=== PATIENT | female | born 1990 | race Caucasian/White ===

== ENCOUNTER 2018-11-07 12:59 | Emergency (ER) | payer MEDICAID, SELFPAY ==
[2018-11-07 13:03] VITALS: BP 124/67; PULSE 105; RESP 16; TEMP 37; O2SAT 100
--- NOTE | 2018-11-07 13:10 | W.ED.GENAD ---
Discharge Plan Disposition Patient Disposition: HOME Condition: Good Discharge Details Chief Complaint: RespSymp Clinical Impression: URI (upper respiratory infection), Sinus congestion, Bronchitis Primary Care Provider: Kailee Quiroz ED Provider: Jhon Bell Home Meds and New Rx's Prescriptions: New albuterol sulfate 90 mcg/actuation HFA aerosol inhaler 1 puff IH Q6H PRN (Reason: bronchospasm) Qty: 8.5 RF: 0 No Action citalopram [Celexa] 20 MG tablet 20 mg PO DAILY Qty: 30 RF: 0 acetaminophen [Tylenol] 325 MG tablet 650 mg PO Q4H PRN PRNRF: 0 ibuprofen 600 MG tablet 600 mg PO Q6H PRN PRNRF: 0 Discharge Instructions Instructions: Upper Respiratory Infection (ED), Acute Bronchitis (ED) Additional Instructions: Please take your inhaler every 4-6 hours for the next 2 days. Please use the nasal sinus rinse as we discussed. Please take 10 mg loratadine every day for the improvement of your symptoms. please stop smoking. If you notice any worsening of your symptoms, or any new symptoms such as vomiting, diarrhea, fever, chills, shortness of breath, chest pain, numbness, weakness, or fainting , please return immediately to the emergency department for reevaluation. Please follow up with your primary care provider as soon as possible for reassessment and reevaluation. As always, it was a pleasure participating in your medical care today. Stand Alone Forms: Work Release Referrals: Kailee Quiroz [Primary Care Provider] - Medical Decision Making This is a pleasant 28-year-old female who presents with 4 days of upper respiratory symptoms. She has runny nose, congestion, mild sinus tenderness and pressure, with a cough with productive yellow sputum. She does smoke. Exam demonstrates no crackles, rhonchi, or wheezes. She is not hypoxic or tachypneic. No clinical indication for severe pneumonia. Signs and symptoms do appear consistent with sinus congestion and a mild upper respiratory viral infection, causing mild bronchitis. 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 With no clinical signs of pneumonia, and her sinus symptoms only being 4 days I do not think that there is an indication for antibiotics at this time, especially with her afebrile status, otherwise very reassuring vital signs and unremarkable lung sounds. With no clinical signs or symptoms clinically consistent of PE, ACS, severe pneumonia I do feel that she can be safely discharged home with close follow-up. Diagnosis mild sinusitis, viral URI, mild bronchitis. Will recommend that she utilize her inhaler every 4 hours for the next 24-48 hours. Perform sinus rinses on a regular basis, and take 10 mg of loratadine daily for improvement of her mild sinusitis. I had a long discussion with her regarding the importance of smoking cessation. We discussed red flags which return. I have extensively reviewed the treatment plan and discharge instructions with the patient and their family. I have addressed all patient concerns at this time. The patient and family was made aware of what symptoms to monitor for that would warrant a return to the emergency department. Discussed the plan with the patient and family, they demonstrate verbal understanding and agreement with our assessment and plan at this time. HPI General Date/Time Provider Initiated Documentation: 11/07/18 13:01. HPI Narrative: This is a 28-year-old female with a past medical history of regular tobacco abuse, who presents today for evaluation of upper respiratory infection-like symptoms. Patient states that for the last 4 days she has had a mild cough, with some mild productive yellow sputum. She is used her inhaler once or twice with some improvement. She denies any fever but does admit to malaise, joint achiness, and generalized feeling of unwellness. She denies any severe headache or neck pain. She denies any hemoptysis, current vomiting, or current diarrhea. She has no history of cardiac disease, blood clots, or other complaints. She does admit to a notable sinus pressure and congestion, and runny nose with this congestion. She denies any other modifying factors. 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 Related Data Home Medications Medication Instructions Recorded Confirmed citalopram [Celexa] 20 mg PO DAILY #30 tab-cap 10/13/17 11/07/18 acetaminophen [Tylenol] 650 mg PO Q4H PRN PRN tab 10/25/17 11/07/18 ibuprofen 600 mg PO Q6H PRN PRN tab 10/25/17 11/07/18 albuterol sulfate 1 puff IH Q6H PRN #8.5 gm 11/07/18 Previous Rx's Medication Instructions Recorded citalopram [Celexa] 20 mg PO DAILY #30 tab-cap 10/13/17 acetaminophen [Tylenol] 650 mg PO Q4H PRN PRN tab 10/25/17 ibuprofen 600 mg PO Q6H PRN PRN tab 10/25/17 albuterol sulfate 1 puff IH Q6H PRN #8.5 gm 11/07/18 Allergies Allergy/AdvReac Type Severity Reaction Status Date / Time silver [Silver] Allergy Intermediate rash Unverified 11/07/18 13:10 fentanyl AdvReac Intermediate Rash Unverified 11/07/18 13:10 General Stated Complaint: RespSymp SUJEY: 4 Review of Systems Review of Systems All systems reviewed & are unremarkable except as noted in HPI and below PFSH Medical History Depression (Chronic) Surgical History Tonsillectomy and adenoidectomy Family History Other GERD (gastroesophageal reflux disease) Hypercholesterolemia Hypertension Type 2 diabetes mellitus Social History Smoking/Tobacco Use Status: Current every day Drug use: Daily Do you feel safe in your relationship?: Yes Exam Narrative Exam Narrative: 1.Const: Well-nourished, Well-developed, appearing stated age 2.Eyes: PERRL, no conjunctival injection, and symmetrical lids. 3.ENT: Atraumatic external nose and ears. Moist MM. Neck: Symmetric, trachea midline, No thyromegaly. Congestion to the frontal and maxillary sinuses with mild tenderness on percussion. Runny nose. Patient demonstrates good movement of cervical neck. There is no nuchal rigidity, no nuchal tenderness. Patient is able to flex the neck without any difficulty or significant pain. Negative Kernig's and Brudzinski sign. 4.CVS: +S1/S2, No murmurs or gallops. Peripheral pulses 2+ and equal in all extremities. Brisk capillary refill in all extremities. 5.RESP: Unlabored respiratory effort. Clear to auscultation bilaterally. No wheezes rales or rhonchi. No clinical evidence of pneumonia 6.GI: Soft, Nontender/Nondistended, No hepatosplenomegaly. No guarding or rebound. 7.MSK: Normocephalic/Atraumatic, Extremities w/o deformity or ttp No cyanosis or clubbing, Normal movement of all extremities. No calf tenderness 8.Skin: Warm, Dry. No rashes or lesions. 9.Neuro: attendance clerk II-XII grossly intact. Sensation grossly intact, no focal neurologic deficits. 10.Psych: (AAO) x3. Appropriate mood and affect Course Vital Signs Temperature 37.0 C 11/07/18 13:03 Pulse 105 H 11/07/18 13:03 Respiratory Rate 16 11/07/18 13:03 Blood Pressure 124/67 11/07/18 13:03 Pulse Oximetry 100 11/07/18 13:03 Temperature 37.0 C 11/07/18 13:03 Temperature Source Skin 11/07/18 13:03 Pulse 105 H 11/07/18 13:03 Respiratory Rate 16 11/07/18 13:03 Respiratory Effort Non-Labored 11/07/18 13:06 Blood Pressure 124/67 11/07/18 13:03 Pulse Oximetry 100 11/07/18 13:03
[2018-11-07] MEDS: Albuterol HFA 8 GM 60 PUFF INH IH (13:23)
--- NOTE | 2018-11-07 13:26 | ED.GENADUL_ITS ---
Discharge Plan Disposition Patient Disposition: HOME Condition: Good Discharge Details Chief Complaint: RespSymp Clinical Impression: URI (upper respiratory infection), Sinus congestion, Bronchitis Primary Care Provider: Kailee Quiroz ED Provider: Jhon Bell Home Meds and New Rx's Prescriptions: New albuterol sulfate 90 mcg/actuation HFA aerosol inhaler 1 puff IH Q6H PRN (Reason: bronchospasm) Qty: 8.5 RF: 0 No Action citalopram [Celexa] 20 MG tablet 20 mg PO DAILY Qty: 30 RF: 0 acetaminophen [Tylenol] 325 MG tablet 650 mg PO Q4H PRN PRNRF: 0 ibuprofen 600 MG tablet 600 mg PO Q6H PRN PRNRF: 0 Discharge Instructions Instructions: Upper Respiratory Infection (ED), Acute Bronchitis (ED) Additional Instructions: Please take your inhaler every 4-6 hours for the next 2 days. Please use the nasal sinus rinse as we discussed. Please take 10 mg loratadine every day for the improvement of your symptoms. please stop smoking. If you notice any worsening of your symptoms, or any new symptoms such as vomiting, diarrhea, fever, chills, shortness of breath, chest pain, numbness, weakness, or fainting , please return immediately to the emergency department for reevaluation. Please follow up with your primary care provider as soon as possible for reassessment and reevaluation. As always, it was a pleasure participating in your medical care today. Stand Alone Forms: Work Release Referrals: Kailee Quiroz [Primary Care Provider] - Medical Decision Making This is a pleasant 28-year-old female who presents with 4 days of upper respiratory symptoms. She has runny nose, congestion, mild sinus tenderness and pressure, with a cough with productive yellow sputum. She does smoke. Exam demonstrates no crackles, rhonchi, or wheezes. She is not hypoxic or tachypneic. No clinical indication for severe pneumonia. Signs and symptoms do appear consistent with sinus congestion and a mild upper respiratory viral infection, causing mild bronchitis. At this time with her symptoms being greater than 48 hours he do not think that influenza testing will pattern changer or add in the diagnosis. With no clinical signs of pneumonia, and her sinus symptoms only being 4 days I do not think that there is an indication for antibiotics at this time, especially with her afebrile status, otherwise very reassuring vital signs and unremarkable lung sounds. With no clinical signs or symptoms clinically consistent of PE, ACS, severe pneumonia I do feel that she can be safely discharged home with close follow-up. Diagnosis mild sinusitis, viral URI, mild bronchitis. Will recommend that she utilize her inhaler every 4 hours for the next 24-48 hours. Perform sinus rinses on a regular basis, and take 10 mg of loratadine daily for improvement of her mild sinusitis. I had a long discussion with her regarding the importance of smoking cessation. We discussed red flags which return. I have extensively reviewed the treatment plan and discharge instructions with the patient and their family. I have addressed all patient concerns at this time. The patient and family was made aware of what symptoms to monitor for that would warrant a return to the emergency department. Discussed the plan with the patient and family, they demonstrate verbal understanding and agreement with our assessment and plan at this time. HPI General Date/Time Provider Initiated Documentation: 11/07/18 13:01 . HPI Narrative: This is a 28-year-old female with a past medical history of regular tobacco abuse, who presents today for evaluation of upper respiratory infection- like symptoms. Patient states that for the last 4 days she has had a mild cough, with some mild productive yellow sputum. She is used her inhaler once or twice with some improvement. She denies any fever but does admit to malaise, joint achiness, and generalized feeling of unwellness. She denies any severe headache or neck pain. She denies any hemoptysis, current vomiting, or current diarrhea. She has no history of cardiac disease, blood clots, or other compla ints. She does admit to a notable sinus pressure and congestion, and runny nose with this congestion. She denies any other modifying factors. 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 Related Data Home Medications Medication Instructions Recorded Confirmed citalopram [Celexa] 20 mg PO DAILY #30 tab-cap 10/13/17 11/07/18 acetaminophen [Tylenol] 650 mg PO Q4H PRN PRN tab 10/25/17 11/07/18 ibuprofen 600 mg PO Q6H PRN PRN tab 10/25/17 11/07/18 albuterol sulfate 1 puff IH Q6H PRN #8.5 gm 11/07/18 Previous Rx's Medication Instructions Recorded citalopram [Celexa] 20 mg PO DAILY #30 tab-cap 10/13/17 acetaminophen [Tylenol] 650 mg PO Q4H PRN PRN tab 10/25/17 ibuprofen 600 mg PO Q6H PRN PRN tab 10/25/17 albuterol sulfate 1 puff IH Q6H PRN #8.5 gm 11/07/18 Allergies Allergy/AdvReac Type Severity Reaction Status Date / Time silver [Silver] Allergy Intermediate rash Unverified 11/07/18 13:10 fentanyl AdvReac Intermediate Rash Unverified 11/07/18 13:10 General Stated Complaint: RespSymp SUJEY: 4 Review of Systems Review of Systems All systems reviewed & are unremarkable except as noted in HPI and below PFSH Medical History Depression (Chronic) Surgical History Tonsillectomy and adenoidectomy Family History Other GERD (gastroesophageal reflux disease) Hypercholesterolemia Hypertension Type 2 diabetes mellitus Social History Smoking/Tobacco Use Status: Current every day Drug use: Daily Do you feel safe in your relationship?: Yes Exam Narrative Exam Narrative: 1.Const: Well-nourished, Well-developed, appearing stated age 2.Eyes: PERRL, no conjunctival injection, and symmetrical lids. 3.ENT: Atraumatic external nose and ears. Moist MM. Neck: Symmetric, trachea midline, No thyromegaly. Congestion to the frontal and maxillary sinuses with mild tenderness on percussion. Runny nose. Patient demonstrates good movement of cervical neck. There is no nuchal rigidity, no nuchal tenderness. Patient is able to flex the neck without any difficulty or significant pain. Negative Kernig's and Brudzinski sign. 4.CVS: +S1/S2, No murmurs or gallops. Peripheral pulses 2+ and equal in all extremities. Brisk capillary refill in all extremities. 5.RESP: Unlabored respiratory effort. Clear to auscultation bilaterally. No wheezes rales or rhonchi. No clinical evidence of pneumonia 6.GI: Soft, Nontender/Nondistended, No hepatosplenomegaly. No guarding or rebound. 7.MSK: Normocephalic/Atraumatic, Extremities w/o deformity or ttp No cyanosis or clubbing, Normal movement of all extremities. No calf tenderness 8.Skin: Warm, Dry. No rashes or lesions. 9.Neuro: county demonstrator II-XII grossly intact. Sensation grossly intact, no focal neurologic deficits. 10.Psych: (AAO) x3. Appropriate mood and affect Course Vital Signs Temperature 37.0 C 11/07/18 13:03 Pulse 105 H 11/07/18 13:03 Respiratory Rate 16 11/07/18 13:03 Blood Pressure 124/67 11/07/18 13:03 Pulse Oximetry 100 11/07/18 13:03 Temperature 37.0 C 11/07/18 13:03 Temperature Source Skin 11/07/18 13:03 Pulse 105 H 11/07/18 13:03 Respiratory Rate 16 11/07/18 13:03 Respiratory Effort Non-Labored 11/07/18 13:06 Blood Pressure 124/67 11/07/18 13:03 Pulse Oximetry 100 11/07/18 13:03
== END 2018-11-07 13:20 | disposition home or self-care (01) ==
PROVIDERS: Emergency Provider Student in an Organized Health Care Education/Training Program; PCP Nurse Practitioner
DX: J06.9 Acute upper respiratory infection, unspecified (principal); J01.90 Acute sinusitis, unspecified; J20.9 Acute bronchitis, unspecified; F17.210 Nicotine dependence, cigarettes, uncomplicated
CPT/HCPCS: 99283

== ENCOUNTER 2020-01-06 10:35 | Emergency (ER) | payer SELFPAY | END 2020-01-06 10:52 | LOC: ER 10:51 | PROVIDERS: Emergency Provider Physician Assistant; PCP Nurse Practitioner | DX: Z53.21 Procedure and treatment not carried out due to patient leaving prior to being seen by health care provider (principal) ==

== ENCOUNTER 2021-02-10 11:27 | Emergency (ER) | payer SELFPAY ==
[2021-02-10 11:39] VITALS: BP 125/55; PULSE 64; RESP 40; TEMP 36.1; O2SAT 100
--- NOTE | 2021-02-10 11:54 | ED.GENADUL_ITS ---
Discharge Plan Disposition Patient Disposition: HOME Condition: Improving Discharge Details Clinical Impression: Nausea & vomiting Primary Care Provider: Kailee Quiroz ED Provider: Lisa Mcgee Home Meds and New Rx's Prescriptions: New promethazine 25 mg suppository 25 mg CO Q6H PRN (Reason: nausea and vomiting) Qty: 12 RF: 0 Continued citalopram [Celexa] 20 MG tablet 20 mg PO DAILY Qty: 30 RF: 0 acetaminophen [Tylenol] 325 MG tablet 650 mg PO Q4H PRN PRNRF: 0 ibuprofen 600 MG tablet 600 mg PO Q6H PRN PRNRF: 0 albuterol sulfate 90 mcg/actuation HFA aerosol inhaler 1 puff IH Q6H PRN (Reason: bronchospasm) Qty: 8.5 RF: 0 Discharge Instructions Instructions: Capsaicin (On the skin), Acute Nausea and Vomiting (ED) Additional Instructions: Please continue to encourage frequent sips of fluids. You may advance your diet as tolerated but please start with bland diet such as bananas, rice, applesauce, toast. May use the Phenergan as prescribed. This is been sent to your local pharmacy. This will be a rectal suppository to help with any recurrence of your nausea and vomiting. Please abstain from alcohol and marijuana as this likely contributed to your nausea and vomiting. You may use the capsaicin cream provided 3-4 times per day topically over your abdomen to help with discomfort as well as nausea/vomiting. If you develop fever/chills, increased pain, inability stay hydrated or other new/worsening symptoms please seek care urgently once again. Otherwise, please follow-up this week for reevaluation with your primary care. Referrals: Kailee Quiroz [Primary Care Provider] - Discharge Data Discharge Date/Time-TO BE ENTERED AT DEPARTURE: 02/10/21 14:42 Medical Decision Making Patient is a 30 year old female presenting today with c/c of nausea and vomiting. She states that this began around 0100. Has had multiple episodes of emesis since then. No hematemesis. No fevers/chills. States she has some abdominal camping, reports pain is in the LUQ. No previous abdominal surgeries. Denies being . Has not had episodes like this historically. She states that she smokes marijuana multiple times per day. Last night had several alcoholic beverages. denies other drug use. On exam, patient is pale and holding emesis bag. She appears dehydrated. Appears nontoxic. Lungs clear, normal cardiac exam. Abdomen benign. She indicates LUQ as area of discomfort. However, no pain was elicited with palpation. Exam is not conisstent with surgical abdomen. Considered viral illness, pancreatitis, vomiting assoicated with ETOH, cannaboid hyperemesis. Will hydrate, treat nausea, obtain baseline labs for diagnosis and evaluate for electrolyte abnormality. Labs reviewed. No leukocytosis. Stable H&H. No electrolyte abnormality. Lipase WNL. Patient reports only minimal improvement with zofran. ECG reviewed by Dr. Burns. QT 480. Will hold off on any furhter QT prolonging agents. Will give reglan and benadryl for continued nausea. This improved patients nausea, will also apply cascaisin cream in the event htis is associated with marijuana overuse. UPT negative. Patient reports symptoms improved. She is able to tolerate PO hydration and crackers. She is ready for discharge. Patient and I discussed continued antiemetics. Will hold off on Zofran for QT. As she was having difficulty tolerating any PO, will give rectal phenergan in [place] event symptoms return. Advised she abstain from ETOH and marijuana. Will send home with capscasin. Return precautions given. We discussed advancement of diet. She does nto have a PCP, have asked that care management arrange for f/u with local PCP in the next week for reevaluation. All of her questions and concerns were addressed, she is in agreeement with this plan. HPI General Mode of arrival: wheelchair . Date/Time Provider Initiated Documentation: 02/10/21 11:51 . Limitations to Documentation: no limitations . Information obtained by: patient and RN notes reviewed . History of Present Illness 30 year old F presents to the emergency department with the chief complaint of nausea and vomiting, described as moderate, with intensity rated at 5. Quality is described as aching, and is localized to the abdomen. Patient reports no radiation. Patient started experiencing this hour(s) (010 0) and it has been constant. No relieving factors improve symptom(s), No exacerbating factors reported . Patient notes loss of appetite and nausea/vomiting; denies fever/chills, rash, shortness of breath and weakness. Patient did receive the following treatments prior to arrival, none Related Data Home Medications Medication Instructions Recorded Confirmed citalopram [Celexa] 20 mg PO DAILY #30 tab-cap 18 02/10/21 acetaminophen [Tylenol] 650 mg PO Q4H PRN PRN tab 10/25/17 02/10/21 ibuprofen 600 mg PO Q6H PRN PRN tab 10/25/17 02/10/21 albuterol sulfate 1 puff IH Q6H PRN #8.5 gm 11/07/18 02/10/21 promethazine 25 mg CO Q6H PRN #12 ea 02/10/21 Previous Rx's Medication Instructions Recorded citalopram [Celexa] 20 mg PO DAILY #30 tab-cap 10/13/17 acetaminophen [Tylenol] 650 mg PO Q4H PRN PRN tab 10/25/17 ibuprofen 600 mg PO Q6H PRN PRN tab 10/25/17 albuterol sulfate 1 puff IH Q6H PRN #8.5 gm 11/07/18 promethazine 25 mg CO Q6H PRN #12 ea 02/10/21 Allergies Allergy/AdvReac Type Severity Reaction Status Date / Time silver [Silver] Allergy Intermediate rash Unverified 02/10/21 11:42 fentanyl AdvReac Intermediate Rash Unverified 02/10/21 11:42 General Stated Complaint: Nausea/Vomit/Diar SUJEY: 3 Review of Systems Constitutional Constitutional: Reports as per HPI, Denies chills, Denies fatigue, Denies fever(s) and Denies headache(s) ENT Ears, Nose, Mouth, and Throat: Denies headache(s) Cardiovascular Cardiovascular: Reports as per HPI, Denies chest pain and Denies dyspnea Respiratory Respiratory: Reports as per HPI, Denies cough and Denies dyspnea Gastrointestinal Gastrointestinal: Reports as per HPI Musculoskeletal Musculoskeletal: Reports as per HPI and Denies back pain Integumentary/Breasts Skin/Breast: Reports as per HPI and Denies rash Neurologic Neurologic: Reports as per HPI and Denies headache(s) Endocrine Endocrine: Denies fatigue PFSH Medical History Depression Surgical History Tonsillectomy and adenoidectomy Family History (Updated 04/03/17 @ 13:45 by Joi Man) Other GERD (gastroesophageal reflux disease) Hypercholesterolemia Hypertension Type 2 diabetes mellitus Social History Smoking/Tobacco Use Status: Current every day Smoking risk assessment performed?: Yes Alcohol Intake: current Alcohol Intake frequency: 3 or more drinks per day Drug use: Daily Substance use type: marijuana Do you feel safe at home: Yes Do you feel safe in your relationship?: Yes Exam Const General: cooperative, no acute distress, well developed and ill appearing acutely (pale, holding emesis bag) Nutritional Appearance: average body habitus and well nourished Orientation: alert and awake HENMT Head: normal to inspection Mouth: mucous membranes dry Resp Effort & Inspection: normal respiratory effort, able to speak in complete sentences and no respiratory distress Auscultation: clear to auscultation bilaterally, no rales, no rhonchi and no wheezes Cardio Rate: regular rate Rhythm: regular rhythm Heart Sounds: S1 normal and S2 normal GI Inspection: normal to inspection Palpation: soft, no hepatosplenomegaly, not firm, no guarding, no masses, not rigid and nontender Percussion: normal to percussion Auscultation: normal bowel sounds Back/Spine/Pelvis Back: no CVA tenderness Skin General skin exam: no rashes or lesions noted Trauma: no lacerations or abrasions Neuro General: patient alert and patient awake Cognition: normal cognition Speech: speech normal Gait: normal gait Psych Appearance: grossly normal and well kempt Mental Status: mental status grossly normal Speech and Movement: speech and movement normal Course Vital Signs Vital signs: Vital Signs Temperature 36.1 C L 02/10/21 11:39 Pulse 64 02/10/21 11:39 Blood Pressure 125/55 L 02/10/21 11:39 Pulse Oximetry 100 02/10/21 11:39 Temperature 36.1 C L 02/10/21 11:39 Temperature Source Temporal Artery Scan 02/10/21 11:39 Pulse 64 02/10/21 11:39 Blood Pressure 125/55 L 02/10/21 11:39 Blood Pressure Position Sitting 02/10/21 11:39 Pulse Oximetry 100 02/10/21 11:39 Oxygen Delivery Method Room Air 02/10/21 11:39 Oxygen Flow Rate 0 02/10/21 11:39 Pain Level 5 02/10/21 11:39
--- NOTE | 2021-02-10 12:00 | RT.EKG_ITS ---
APPROVED REPORT Exam: Resting ECG Reason for Exam: nausea, QT prolonging medications Patient Location: E HR:72 bpm ECG Measurements Heart Rate 72 AXIS ME 133 P 80 QRSd 84 QRS 82 QT 439 T 74 QTc 482 Conclusion Sinus rhythm...normal P axis, V-rate 60- 99 Probable left atrial enlargement...P >50mS, <-0.10mV V1 Nonspecific T abnrm, anterolateral leads...T <-0.10mV, I aVL V2-V6. T wave inversion in V2 and aVL. No STEMI. I have reviewed and interpreted ECG and agree with software generated interpretation.
[2021-02-10] MEDS: Ondansetron 4 MG/2 ML VIAL IVP (12:02)
[2021-02-10] MEDS: Normal Saline 1,000 ML 1000 ML IV ×2 (12:02→13:13)
[2021-02-10 12:19] LABS: Abs Immature Grans 0.03 10^3/uL (0.0-0.06); Absolute Basophil Count 0.03 10^3/uL (0.0-0.2); Absolute Lymphocyte Count 1.58 10^3/uL (1.2-3.4); Absolute Monocyte Count 0.34 10^3/uL (0.1-0.8); Absolute Neutrophil Count 7.96 10^3/uL (1.2-6.7); Basophils % 0.3; HCT 41.4 % (36.0-46.0); HGB 13.9 g/dL (11.2-15.7); Immature Grans % 0.3; Lymphocytes % 15.9; MCH 33.6 pg (27.0-33.0); MCHC 33.6 % (32.0-36.0); MPV 9.3 fL (8.0-11.0); Monocytes % 3.4; Neutrophils % 80.1; Nucleated RBC 0 %; Platelet Count 287 10^3/uL (130-400); RBC 4.14 10^6/uL (3.93-5.22); RDW 12.9 % (11.7-14.6); RDW-SD 47.6 fL; WBC 9.94 10^3/uL (4.4-10.8)
[2021-02-10 12:32] LABS: ALT 17 U/L (14-59); AST 16 U/L (15-37); Albumin 4.2 g/dL (3.4-5.0); Alkaline Phosphatase 51 U/L (46-116); BUN 7 mg/dL (7-18); Bilirubin, Total 0.7 mg/dL (0.2-1.0); CREATININE 0.8 mg/dL (0.55-1.02); Chloride 104 mmol/L (98-107); Glucose 119 mg/dL (74-106); Lipase 22 U/L (73-393); Sodium 141 mmol/L (136-145); Total Protein 7.6 g/dL (6.4-8.2)
[2021-02-10 12:45] VITALS: BP 125/55; PULSE 78; RESP 16; O2SAT 99
[2021-02-10] MEDS: diphenhydrAMINE 50 MG/ML VIAL 25 MG IVP (13:13)
[2021-02-10] MEDS: Metoclopramide 10 MG/2 ML VIAL IVP (13:13)
[2021-02-10 13:15] VITALS: BP 120/65; PULSE 56; RESP 18; O2SAT 100
[2021-02-10 13:45] VITALS: BP 127/69; PULSE 61; RESP 16; O2SAT 100
== END 2021-02-10 14:42 | disposition home or self-care (01) ==
PROVIDERS: Emergency Provider Physician Assistant; PCP Nurse Practitioner
DX: R11.2 Nausea with vomiting, unspecified (principal); R10.12 Left upper quadrant pain; R94.31 Abnormal electrocardiogram [ECG] [EKG]; F12.10 Cannabis abuse, uncomplicated; F10.10 Alcohol abuse, uncomplicated
CPT/HCPCS: 36415; 80053; 83690; 93005; 96361; 96374; 96375; 99285; 83735; 85025; 93010; 99284; J1200; J2405; J2765

== ENCOUNTER 2022-03-01 16:31 | Emergency (ER) | payer SELFPAY ==
[2022-03-01 16:40] VITALS: BP 107/54; PULSE 90; RESP 18; TEMP 36.9; O2SAT 98
--- NOTE | 2022-03-01 17:00 | DI.CT_ITS ---
Exam(s) CT ABDOMEN PELVIS WO EXAM: CT ABDOMEN PELVIS WO CLINICAL HISTORY: diarrhea for two weeks. TECHNIQUE: Imaging Protocol: Axial computed tomography images with coronal and sagittal reformatted images were created and reviewed. Oral: / no COMPARISON: No exams were available for comparison FINDINGS: ABDOMEN: Lung Bases: Normal where visualized. Liver: Normal density. No measurable mass. Gallbladder and biliary tract: No radiodense calculus or dilation. Pancreas: Normal density, no abnormal calcifications or inflammatory process. Spleen: Normal. Kidneys: Normal size, contour and axis. No radiodense stones or obstructive uropathy. No masses seen. Adrenal glands: No masses seen. Lymph nodes: Within normal limits. Abdominal Aorta: Abdominal portion non-dilated. PELVIS: Bladder: Symmetric distention, no gross wall thickening. Bowel: Suboptimal evaluation due to lack of IV and oral contrast as well as lack of intra-abdominal f at.. Stomach shows food and fluid. No abnormal gastric or small bowel distension. Scattered high h igh-density material within the colon likely ingested material. Colon Shows a small amount of stool and fluid and is not abnormally distended. There is no wall thickening. No obstruction or bowel wal l thickening. Appendix contains high-density material but is not abnormal distended. No secondary fi ndings of appendicitis. Peritoneal cavity: No ascites, collection or mesenteric inflammatory response. Reproductive organs: W ithin normal limits. Diaphragm at cervix. Bones: Within normal limits. IMPRESSION: High-density material in colon, presumably ingested material. RADIATION DOSE DELIVERED: 482.44mGy.cm Total DLP DATA REPOSITORY: All CT scans at this facility are submitted to the National Radiology Data Registry (NRDR) Dose Index Registry (DIR) with the [employer] (ACR). RADIATION OPTIMIZATION: All CT scans at this facility use at least one of these dose optimization te chniques: automated exposure control; mA and/or kV adjustment per patient size (includes targeted exa ms where dose is matched to clinical indication); or iterative reconstruction.
--- NOTE | 2022-03-01 17:24 | PDOC.ERCMPRO ---
- If Service Date Differs Date of service: 03/01/22 Time of Service: 17:27 Care Management Progress Note SBIRT screen: positive for nicotine, cannabis (low risk), Anxiety Moderate (GENE 10) and Depression Moderate (PHQ-9: 10). Pt endorsed thoughts you would be better off or hurting yourself in some way as of last Friday, when she states she had a breakdown. Pt reports she was evaluated by [facility] at that time. Pt endorses no current SI. Pt reports she was previously on medication and was seeing a counselor but stopped tx when she was . Pt was provided with contact information for primary care and mental health providers in the area. Pt reports she has the [facility] number for support as needed. Pt was encouraged to foillow up with [facility] and [facility] for primary care.
--- NOTE | 2022-03-01 17:30 | W.ED.GENAD ---
Discharge Plan Disposition Patient Disposition: HOME Condition: Stable Discharge Details Chief Complaint: Nausea/Vomit/Diar Clinical Impression: Diarrhea Primary Care Provider: Kailee Quiroz ED Provider: Jonathan Grajeda Home Meds and New Rx's Prescriptions: No Action citalopram [Celexa] 20 MG tablet 20 mg PO DAILY Qty: 30 0RF acetaminophen [Tylenol] 325 MG tablet 650 mg PO Q4H PRN PRN0RF ibuprofen 600 MG tablet 600 mg PO Q6H PRN PRN0RF albuterol sulfate 90 mcg/actuation HFA aerosol inhaler 1 puff IH Q6H PRN (Reason: bronchospasm) Qty: 8.5 0RF promethazine 25 mg suppository 25 mg NC Q6H PRN (Reason: nausea and vomiting) Qty: 12 0RF Discharge Instructions Instructions: Acute Diarrhea (ED) Additional Instructions: Please follow-up with [facility] GI team for close follow-up. Please return to the emergency department you develop any worsening symptoms Medical Decision Making 31-year-old female presents with nausea vomiting diarrhea over the past 2 weeks predominantly diarrhea loose brown stools no mucus no blood. No recent travel no recent antibiotics no recent hospitalization. Has worked as [employer] in the past. Upper and lower endoscopy within the last couple of years was negative. Patient resting currently no acute distress nontoxic nonperitoneal. Well-hydrated. Consider inflammatory versus infectious diarrhea. Low suspicion for cholecystitis or appendicitis. Consider Crohn's versus ulcerative colitis versus C. difficile versus ova parasite versus viral enterocolitis. Screening labs imaging fluids antiemetics GI cocktail close reassessment likely GI referral as an outpatient 19: 50 patient resting comfortably no acute distress. Labs unremarkable. Imaging showing radiopaque foreign bodies within the colon and stomach, patient denies any foreign body ingestion, endorses that she is taking a lot of Pepto-Bismol and aspirin. Placement is radiopaque. No vomiting in department no diarrhea in department. Patient was unable to give a stool sample. Will refer to [facility] GI for close follow-up. Home care instructions and return precautions given HPI General Date/Time Provider Initiated Documentation: 03/01/22 16:53. HPI Narrative: 31-year-old female presents with nausea vomiting and diarrhea over the past 2 weeks, predominantly lower GI symptoms with loose brown liquidy stool multiple times a day, no blood or mucus noted, intermittent nausea and vomiting less frequent than the diarrhea. Endorses history of upper and lower endoscopy without significant findings, denies history of abdominal surgeries. Denies urinary symptoms or vaginal bleeding. No recent travel or antibiotics. 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 No recent hospitalizations. Related Data Home Medications Medication Instructions Recorded Confirmed citalopram 20 mg tablet (Celexa) 20 mg PO DAILY #30 tab-caps 10/13/17 02/10/21 acetaminophen 325 mg tablet 650 mg PO Q4H PRN PRN 10/25/17 03/01/22 (Tylenol) ibuprofen 600 mg tablet 600 mg PO Q6H PRN PRN 10/25/17 03/01/22 albuterol sulfate 90 mcg/actuation 1 puff inhalation Q6H PRN 11/07/18 03/01/22 aerosol inhaler bronchospasm #8.5 grams promethazine 25 mg rectal 25 mg NC Q6H PRN nausea and 02/10/21 03/01/22 suppository vomiting #12 ea Previous Rx's Medication Instructions Recorded citalopram 20 mg tablet (Celexa) 20 mg PO DAILY #30 tab-caps 10/13/17 acetaminophen 325 mg tablet 650 mg PO Q4H PRN PRN 10/25/17 (Tylenol) ibuprofen 600 mg tablet 600 mg PO Q6H PRN PRN 10/25/17 albuterol sulfate 90 mcg/actuation 1 puff inhalation Q6H PRN 11/07/18 aerosol inhaler bronchospasm #8.5 grams promethazine 25 mg rectal 25 mg NC Q6H PRN nausea and 02/10/21 suppository vomiting #12 ea Allergies Allergy/AdvReac Type Severity Reaction Status Date / Time silver [Silver] Allergy Intermediate rash Unverified 03/01/22 16:45 fentanyl AdvReac Intermediate Rash Unverified 03/01/22 16:45 General Stated Complaint: Nausea/Vomit/Diar SUJEY: 3 Review of Systems Narrative: Review of Systems Constitutional: negative Eyes: negative ENT: negative Cardiovascular: negative Respiratory: negative Gastrointestinal: Nausea vomiting diarrhea : negative Musculoskeletal: negative Skin: negative Neurologic: negative Psych: negative PFSH All Active Problems (Updated 03/01/22 @ 19:52 by Jonathan Grajeda MD) Anxiety (Acute 02/11/18) Other specified contraceptive management (Acute 12/14/12) Cigarette nicotine dependence in remission (Acute 09/10/17) Cigarette smoker (Acute 10/06/17) Marijuana abuse, continuous (Acute 09/10/17) Normal in multigravida in second trimester (Acute 06/05/17) Normal in multigravida in third trimester (Acute 09/10/17) Patient is a currently breast-feeding mother (Acute 12/02/17) care and examination (Acute 12/02/17) depression (Acute 02/11/18) Rh negative state in antepartum period (Acute 07/31/17) Size of fetus inconsistent with dates in third trimester (Acute 09/10/17) Supervision of normal first (Acute 11/17/14) Nausea & vomiting (Acute) Diarrhea (Acute) Medical History Depression Surgical History Tonsillectomy and adenoidectomy Family History (Updated 04/03/17 @ 13:45 by Lexy Man) Other GERD (gastroesophageal reflux disease) Hypercholesterolemia Hypertension Type 2 diabetes mellitus Social History Smoking/Tobacco Use Status: Current every day Tobacco Type: cigarettes Smoking risk assessment performed?: Yes Alcohol Intake: current Alcohol Intake frequency: 3 or more drinks per day Drug use: Daily Substance use type: marijuana Details: have not had alcohol in 7 days Do you feel safe at home: Yes Do you feel safe in your relationship?: Yes Exam Narrative Exam Narrative: Physical Examination General: alert, awake, cooperative, resting comfortably, no acute distress HEENT: normocephalic, atraumatic; PERRL, EOM intact, conjunctiva normal; no nasal discharge; moist mucous membranes, oral and pharyngeal mucosa normal, tolerating secretions Neck: supple, trachea midline; full ROM Chest: normal to inspection Respiratory: normal respiratory effort, speaking in full sentences, clear to auscultation, no wheezing, rales or rhonchi Cardiac: regular rate, regular rhythm, S1S2 intact, no murmurs rubs or gallops GI: abdomen soft, non-tender, non-distended; no palpable mass or hepatosplenomegaly Skin: no lesions, rashes or trauma appreciated Neuro: AAOx3, normal speech, moving all extremities Psych: Appropriate mood and affect Course Vital Signs Vital signs: Vital Signs Temperature 36.9 C 03/01/22 16:40 Pulse 90 03/01/22 16:40 Respiratory Rate 18 03/01/22 16:40 Blood Pressure 107/54 L 03/01/22 16:40 Pulse Oximetry 98 03/01/22 16:40 Temperature 36.9 C 03/01/22 16:40 Temperature Source Temporal Artery Scan 03/01/22 16:40 Pulse 90 03/01/22 16:40 Respiratory Rate 18 03/01/22 16:40 Respiratory Effort Non-Labored 03/01/22 16:46 Blood Pressure 107/54 L 03/01/22 16:40 Blood Pressure Position Sitting 03/01/22 16:40 Pulse Oximetry 98 03/01/22 16:40 Oxygen Delivery Method Room Air 03/01/22 16:40 Oxygen Flow Rate 0 03/01/22 16:40 PAWSS Have you Been Recently Intoxicated or Drunk Within the Last 30 days?: No Have you Ever Experienced Previous Episodes of Alcohol Withdrawal?: No Have you ever Experienced Withdrawal Seizures?: No Have you ever Experienced Delirium Tremens(DT)s?: No Have you ever undergone Alcohol Rehabilitation Treatment (i.e, inpt ot outpatient treatment programs)?: No Have you ever Experienced Blackouts?: No Have you ever Combined Alcohol with other Downers within the last 90 days?: No Have you ever Combined Alcohol with any other Substance of Abuse during the last 90 days?: No Positive Blood Alcohol level on Presentation? [PCS.BAL]: No Evidence of Increased Autonomic Activity (i.e. HR>120, tremor, sweating, agitation, nausea)?: No Result: 0
[2022-03-01] MEDS: Normal Saline 1,000 ML 1000 ML IV (18:15)
[2022-03-01] MEDS: Ondansetron 4 MG/2 ML VIAL IVP (18:20)
[2022-03-01 18:21] LABS: Abs Immature Grans 0.02 10^3/uL (0.0-0.06); Absolute Basophil Count 0.05 10^3/uL (0.0-0.2); Absolute Eosinophil Count 0.05 10^3/uL (0.0-0.7); Absolute Lymphocyte Count 2.13 10^3/uL (1.2-3.4); Absolute Neutrophil Count 4.48 10^3/uL (1.2-6.7); Basophils % 0.7; Eosinophils % 0.7; HCT 38.7 % (36.0-46.0); HGB 13.4 g/dL (11.2-15.7); Immature Grans % 0.3; Lymphocytes % 29.5; MCH 34.4 pg (27.0-33.0); MCHC 34.6 % (32.0-36.0); MCV 100 fL (80-95); Monocytes % 6.9; Neutrophils % 61.9; Platelet Count 237 10^3/uL (130-400); RBC 3.89 10^6/uL (3.93-5.22); WBC 7.23 10^3/uL (4.4-10.8)
[2022-03-01 18:50] LABS: ALT 23 U/L (14-59); AST 16 U/L (15-37); Albumin 3.8 g/dL (3.4-5.0); Alkaline Phosphatase 46 U/L (46-116); Anion Gap 8.2 mmol/L (3-11); BUN 8 mg/dL (7-18); Bilirubin, Total 0.3 mg/dL (0.2-1.0); CO2 27.8 mmol/L (21.0-32.0); CREATININE 0.8 mg/dL (0.55-1.02); Chloride 100 mmol/L (98-107); Glucose 104 mg/dL (74-106); Lipase 32 U/L (73-393); Potassium 3.6 mmol/L (3.5-5.1); Sodium 136 mmol/L (136-145); TSH (W/Ref FT4) 1.74 uIU/mL (0.36-3.74); Total Protein 7.2 g/dL (6.4-8.2)
--- NOTE | 2022-03-01 19:06 | DI.VRAD_ITS ---
PROCEDURE INFORMATION: Exam: CT Abdomen And Pelvis Without Contrast Exam date and time: 03/01/2022 6:28 PM Age: 31 years old Clinical indication: Other: Diarrhea for two weeks TECHNIQUE: Imaging protocol: Computed tomography of the abdomen and pelvis without contrast. COMPARISON: [facility] US 2-3 TRIMESTER TRANSABD*P 06/05/2017 5:33 PM FINDINGS: Liver: Normal. No mass. Gallbladder and bile ducts: Normal. No calcified stones. No ductal dilation. Pancreas: Normal. No ductal dilation. Spleen: Normal. No splenomegaly. Adrenal glands: Normal. No mass. Kidneys and ureters: Normal. No hydronephrosis. Stomach and bowel: Metallic densities throughout the colon. May represent retained oral contrast or ingested foreign body. Appendix: No evidence of appendicitis. Intraperitoneal space: Suboptimal study due to the lack of oral and intravenous contrast and lack of intraperitoneal fat. Vasculature: Unremarkable. No abdominal aortic aneurysm. Lymph nodes: Unremarkable. No enlarged lymph nodes. Urinary bladder: Unremarkable as visualized. Reproductive: May have Diaphragm in the cervix Bones/joints: Unremarkable. No acute fracture. Soft tissues: Unremarkable. IMPRESSION: 1. Metallic densities throughout the colon. May represent retained oral contrast or ingested foreign body. .. 2. Suboptimal study due to the lack of oral and intravenous contrast and lack of intraperitoneal fat. Dictated and Authenticated by: Khris Gregory MD. Ordering:BRONWYN Castillo MD
== END 2022-03-01 20:39 | disposition home or self-care (01) ==
PROVIDERS: Emergency Provider Emergency Medicine; PCP Nurse Practitioner
DX: R19.7 Diarrhea, unspecified (principal); R11.2 Nausea with vomiting, unspecified; T18.4XXA Foreign body in colon, initial encounter; F17.210 Nicotine dependence, cigarettes, uncomplicated; X58.XXXA Exposure to other specified factors, initial encounter
CPT/HCPCS: 80053; 81025; 83690; 96361; 96374; 99284; 74176; 84443; 85025; J2405

== ENCOUNTER 2023-09-16 04:59 | Outpatient (CLI) | payer SELFPAY ==
[2023-09-16 15:53] LABS: Abs Immature Grans 0.03 10^3/uL (0.0-0.06); Absolute Basophil Count 0.03 10^3/uL (0.0-0.2); Absolute Eosinophil Count 0.22 10^3/uL (0.0-0.7); Absolute Lymphocyte Count 4.33 10^3/uL (1.2-3.4); Absolute Monocyte Count 0.49 10^3/uL (0.1-0.8); Absolute Neutrophil Count 4.93 10^3/uL (1.2-6.7); Basophils % 0.3; Eosinophils % 2.2; HCT 36.1 % (36.0-46.0); HGB 12.3 g/dL (11.2-15.7); Immature Grans % 0.3; Lymphocytes % 43.2; MCH 32.5 pg (27.0-33.0); MCHC 34.1 % (32.0-36.0); MCV 96 fL (80-95); MPV 8.6 fL (8.0-11.0); Monocytes % 4.9; Neutrophils % 49.1; Platelet Count 224 10^3/uL (130-400); RBC 3.78 10^6/uL (3.93-5.22); RDW 12.1 % (11.7-14.6); RDW-SD 42.9 fL; WBC 10.03 10^3/uL (4.4-10.8)
[2023-09-17 19:40] LABS: Hepatitis B Surface Ag Negative (Negative)
[2023-09-17 20:13] LABS: Hepatitis C Ab w Rflx HCV PCR Negative (Negative)
[2023-09-17 20:14] LABS: HIV-1/2 Ag & Ab Screen Negative (Negative)
[2023-09-18 09:36] LABS: Rubella IgG Ab (UVM) Positive (See Note); Varicella IgG Antibody Positive (See Note)
[2023-09-19 13:08] LABS: Syphilis IgG w/Reflex Nonreactive (Nonreactive)
== END 2023-09-16 05:00 | disposition home or self-care (01) ==
LOC: LBO 05:00
PROVIDERS: PCP Nurse Practitioner Family; Visit Provider Advanced Practice Midwife
DX: Z34.91 Encounter for supervision of normal pregnancy, unspecified, first trimester (principal)
CPT/HCPCS: 36415; 86787; 86803; 86850; 86900; 86901; 87340; 87389; 85025; 86762; 86780

== ENCOUNTER 2023-09-16 15:46 | Outpatient (REF) | payer SELFPAY ==
--- NOTE | 2023-09-16 15:00 | PAPFT_PTH ---
PATIENT: Christine Booker LOC: [facility] U#:[id number] AGE/SX: 33/F ROOM: RE09/16/[address]: Radha Back : 1990 BED: DIS: 09/16/2023 SPEC #: [id number] RECD: 09/16/23 17:52 STATUS: KRISTOPHER REQ #: [id number] ELAINA: 09/16/23 15:[address]: Radha Back DEPT: [facility] Cytology RECD BY: Rina Thomas ENTERED: 09/16/23 17:53 SP TYPE: PAPFT OTHR DR: Lorrie David Tissues: 1 - CX/ENDOCX FOR PAP SMEARS Procedures: PAP THIN PREP/UVM Screening HPV DNA PROBE Comments: [id number] (HPV 16 & 18/45)
[2023-09-16 17:28] LABS: *AMPHETAMINES SCREEN URINE Negative (Negative); *BARBITURATES SCREEN URINE Negative (Negative); *BENZODIAZEPINES SCREEN URINE Negative (Negative); Cannabinoids THC Positive (Negative); Cocaine Screen,Urine Negative (Negative); METHADONE URINE SCREEN Negative (Negative); OPIATES URINE SCREEN Negative (Negative); Tricyclic Antidepressants Negative (Negative)
[2023-09-18 10:50] LABS: Fentanyl Scr w/Rfx Confirm Negative ng/mL (<1)
[2023-09-18 12:23] LABS: Chlamydia Result Negative (Negative); GC Result Negative (Negative)
[2023-09-23 07:56] LABS: Buprenorphine Negative ng/mL (Cutoff: 5.0); Norbuprenorphine Negative ng/mL (Cutoff: 2.5)
== END 2023-09-16 15:47 | disposition home or self-care (01) ==
LOC: LBN 15:46
PROVIDERS: PCP Nurse Practitioner Family; Visit Provider Advanced Practice Midwife
DX: Z34.91 Encounter for supervision of normal pregnancy, unspecified, first trimester (principal); F12.90 Cannabis use, unspecified, uncomplicated; N89.8 Other specified noninflammatory disorders of vagina
CPT/HCPCS: 80307; 80348; 87491; 87591; 88142; 87086; 87480; 87510; 87624; 87660; 88313

== ENCOUNTER 2023-10-13 15:39 | Outpatient (CLI) | payer MEDICAID, SELFPAY ==
[2023-10-13 10:50] LABS: Panorama Kit Sent via Fed Ex
== END 2023-10-13 15:40 | disposition home or self-care (01) ==
LOC: LBO 15:42
PROVIDERS: PCP Nurse Practitioner Family; Visit Provider Advanced Practice Midwife
DX: Z34.93 Encounter for supervision of normal pregnancy, unspecified, third trimester (principal); Z36.89 Encounter for other specified antenatal screening; Z3A.16 16 weeks gestation of pregnancy
CPT/HCPCS: 36415

== ENCOUNTER 2023-11-05 23:07 | Emergency (ER) | payer MEDICAID, SELFPAY ==
[2023-11-05 23:07] VITALS: BP 116/62; PULSE 69; RESP 18; TEMP 36.2; O2SAT 99
--- NOTE | 2023-11-05 23:17 | ED.GENADUL_ITS ---
Discharge Plan Disposition Patient Disposition: Home Condition: Good Discharge Details Clinical Impression: Nausea & vomiting, , Dehydration Primary Care Provider: Lorrie David ED Provider: Jhon Bell Home Meds and New Rx's Prescriptions: New ondansetron 4 mg tablet,disintegrating 4 mg PO Q8H Qty: 20 0RF No Action Prenatabs Rx 29 mg iron- 1 mg tablet 1 tab PO DAILY ondansetron HCl 4 mg tablet 4 mg PO Q8H PRN (Reason: nausea and vomiting) Qty: 60 4RF Discharge Instructions Instructions: Dehydration (ED), Acute Nausea and Vomiting (ED) Additional Instructions: At this time your laboratory workup shows no evidence of electrolyte abnormality or kidney damage from the vomiting. Please continue to drink plenty fluids at home and stay well-hydrated. Please take your home Zofran as needed. An Additional prescription has been sent to your pharmacy to be used as needed. If you notice any worsening of your symptoms, or any new symptoms such as vomiting, diarrhea, fever, chills, shortness of breath, chest pain, numbness, weakness, or fainting , please return immediately to the emergency department for reevaluation. Please follow up with your primary care provider as soon as possible for reassessment and reevaluation. As always, it was a pleasure partici pating in your medical care today. Referrals: Lorelei Lala MD [ [facility] STAFF PHYSICIAN] - Lorrie David [Primary Care Provider] - [facility] General Date/Time Provider Initiated Documentation: 11/05/23 23:17 . HPI Narrative: This is a 33-year-old female who is currently 5 months who is a G6, P2 with a past medical history of marijuana use, tobacco use, who presents today for nausea and vomiting. Patient states that at 5 PM she developed sudden nausea and has had multiple episodes of vomiting since then. Her son also has recently started coming down with the symptoms over the past 24 hours. She denies any hematemesis. She denies any diarrhea. She did try taking her Zofran but was not able to keep anything down. She does feel dehydrated. She admits to generalized abdominal and nausea and achiness. No focal pain or tenderness. No right-sided abdominal pain. Mild epigastric discomfort. No other complaints at this time. No other modifying factors. Related Data Home Medications Medication Instructions Recorded Confirmed ondansetron HCl 4 mg tablet 4 mg PO Q8H PRN nausea and 08/22/23 11/05/23 vomiting #60 tabs vitamin 1 tab PO DAILY 08/22/23 11/05/23 no.76-iron,carbonyl 29 mg iron-folic acid 1 mg tablet (Prenatabs Rx) ondansetron 4 mg disintegrating 4 mg PO Q8H #20 tabs 11/06/23 tablet Previous Rx's Medication Instructions Recorded ondansetron HCl 4 mg tablet 4 mg PO Q8H PRN nausea and 08/22/23 vomiting #60 tabs ondansetron 4 mg disintegrating 4 mg PO Q8H #20 tabs 11/06/23 tablet Allergies Allergy/AdvReac Type Severity Reaction Status Date / Time silver [Silver] Allergy Intermediate rash Unverified 11/05/23 23:10 fentanyl AdvReac Intermediate Rash Unverified 11/05/23 23:10 General Stated Complaint: Nausea/Vomit/Diar SUJEY: 3 Review of Systems All systems reviewed & are unremarkable except as noted in HPI and below Exam Narrative Exam Narrative: 1.Const: Well-nourished, Well-developed, appearing stated age 2.Eyes: PERRL, no conjunctival injection, and symmetrical lids. 3.ENT: Atraumatic external nose and ears. Dry MM. Neck: Symmetric, trachea midline, No thyromegaly. 4.CVS: +S1/S2, No murmurs or gallops. Peripheral pulses 2+ and equal in all extremities. Brisk capillary refill in all extremities. 5.RESP: Unlabored respiratory effort. Clear to auscultation bilaterally. No wheezes rales or rhonchi 6.GI: Soft, Nontender/Nondistended, No hepatosplenomegaly. No guarding or rebound. Appropriately gravid abdomen. No right lower or right upper quadrant tenderness. No significant reproducible tenderness on exam. No flank or CVA tenderness. 7.MSK: Normocephalic/Atraumatic, Extremities w/o deformity or ttp No cyanosis or clubbing, Normal movement of all extremities 8.Skin: Warm, Dry. No rashes or lesions. 9.Neuro: global position system technician II-XII grossly intact. Sensation grossly intact, no focal neurologic deficits. 10.Psych: (AAO) x3. Appropriate mood and affect Course Vital Signs Vital signs: Vital Signs Temperature 36.2 C L 11/05/23 23:07 Pulse 69 11/05/23 23:07 Respiratory Rate 18 11/05/23 23:07 Blood Pressure 116/62 11/05/23 23:07 Pulse Oximetry 99 11/05/23 23:07 Temperature 36.2 C L 11/05/23 23:07 Pulse 69 11/05/23 23:07 Respiratory Rate 18 11/05/23 23:07 Respiratory Effort Normal 11/05/23 23:09 Blood Pressure 116/62 11/05/23 23:07 Pulse Oximetry 99 11/05/23 23:07 Oxygen Delivery Method Room Air 11/05/23 23:07 Oxygen Flow Rate 0 11/05/23 23:07 Pain Level 0 11/05/23 23:07 Medical Decision Making This is a 33-year-old female who is currently 5 months who is a G6, P2 with a past medical history of marijuana use, tobacco use, who presents today for nausea and vomiting. Patient states that at 5 PM she developed sudden nausea and has had multiple episodes of vomiting since then. Her son also has recently started coming down with the symptoms over the past 24 hours. She denies any hematemesis. She denies any diarrhea. She did try taking her Zofran but was not able to keep anything down. She does feel dehydr ated. She admits to generalized abdominal and nausea and achiness. No focal pain or tenderness. No right-sided abdominal pain. Mild epigastric discomfort. No other complaints at this time. No other modifying factors. Exam demonstrates well-appearing female, no focal abdominal tenderness, no evidence of an acute surgical abdomen. Mucous membranes are dry. Bedside ultrasound shows heart rate of 141. Patient demonstrates good movement on exam. Suspect viral cause of vomiting. Potentially enterovirus or [place] virus. Will rehydrate with a liter of lactated Ringer's, patient has chronically been on Zofran, patient understands risks. We will give an additional dose of Zofran here. Will evaluate for electrolyte abnormalities, monitor closely and reassess. 1:02 AM Laboratory workup has returned, white count elevated at 17 however the patient has had significant vomiting and dehydration this is likely reflective of that. No bandemia. No fever. No other evidence to suggest systemic infection clinically at this time. No clinical evidence to suggest cholecystitis. Bilirubin normal, transaminases normal. Symptoms inconsistent with help syndrome. Lipase normal. Patient has had no more vomiting here, she still does admit to some mild epigastric cramping. No evidence of pancreatitis. We will give a second liter of lactated Ringer here. We will give some additional Reglan. 2:11 AM Patient feeling much better. She has been able to tolerate p.o. well. Second liter of lactated Ringer's was given. Vital signs stable. Patient stable for discharge. Patient requesting discharge. Will give Zofran for home. Discussed red flags which to return. I have extensively reviewed the treatment plan and discharge instructions with the patient. I have addressed all patient concerns at this time. The patient was made aware of what symptoms to monitor for that would warrant a return to the emergency department. Discussed the plan with the patient, they demonstrate verbal understanding and agreement with our assessment and plan at this time. The documentation in this chart was dictated using [employer] dictation software. Please excuse any dictation errors. Quality:SDOH Health Related Social Needs: No Data to Display PFSH All Active Problems (Updated 11/06/23 @ 01:20 by Jhon Bell DO) Dehydration (Acute) (Acute) Nausea & vomiting (Acute) Bacterial vaginosis in (Acute) ASCUS (atypical squamous cells of undetermined significance) on gynecologic Papanicolaou smear complicating , antepartum (Acute) HPV + other types, neg 16/18/45 Lumbosacral lordosis (Acute) (Acute) Nausea and vomiting during (Acute) Marijuana use (Acute) Cigarette smoker (Acute 10/06/17) Anxiety (Acute 02/11/18) Medical History Vaginal discharge during in first trimester Positive test Chronic back pain History of depression Depression Surgical History Tonsillectomy and adenoidectomy Family History Other Breast cancer Diabetes GERD (gastroesophageal reflux disease) Hypercholesterolemia Hypertension Ovarian cancer Type 2 diabetes mellitus Uterine cancer Social History Smoking/Tobacco Use Status: Current every day Tobacco Type: cigarettes Tobacco: How many years used: 13 Quit status: has quit before Smoking risk assessment performed?: Yes Alcohol Intake: current Alcohol Intake frequency: 3 or more drinks per day Drug use: Daily Substance use type: marijuana Details: have not had alcohol in 7 days Household members: other Details: BF-Will. together since 12/2022 Do you feel safe at home: Yes Do you feel safe in your relationship?: Yes Female Reproductive History Menstrual Age of Menarche: 13 Duration of menses: 3-5 days History History 6 Para 2 Hx # Term Pregnancies 2 Multiple births 0 Hx # Pregnancies 0 Ectopic pregnancies 0 AB induced 3 Hx Number of Living Children 2 AB spontaneous 0 Past Pregnancies Del. Date GA/Weeks # Preg Succ Route Wgt Sex Labor Lgth Anesth esia Location Prov [facility] 06/11/15 40 Yes vaginal 3345.244 g Male [facility] 10/24/17 40 Yes vaginal 3033.399 g Female [facility] Delivery Date: 06/11/15 Last Updated by: Twyla Morales Delivery Date: 10/24/17 Last Updated by: Radha Back CNM [facility] rapid delivery. POCUS Exam (ED) Limited OB Exam DATE OF EXAM:: 11/05/23 TIME OF EXAM:: 23:21 PROVIDER THAT PERFORMED THE STUDY: Jhon Bell IS THIS A REPEAT EXAM DURING THIS ENCOUNTER: No Type of Exam: Pelvic OB Trans Abdominal REASON FOR EXAM: other (Vomiting) indication: Vomiting VISUALIZED STRUCTURES: Uterus and Other (Visualization of fetus including heart) structure: Visualization of fetus including heart PERTINENT FINDINGS/IMPRESSION: cardiac activity Exam Complete.
[2023-11-05 23:33] LABS: Abs Immature Grans 0.08 10^3/uL (0.0-0.06); Absolute Basophil Count 0.04 10^3/uL (0.0-0.2); Absolute Eosinophil Count 0.04 10^3/uL (0.0-0.7); Absolute Lymphocyte Count 1.76 10^3/uL (1.2-3.4); Absolute Monocyte Count 0.45 10^3/uL (0.1-0.8); Absolute Neutrophil Count 15.46 10^3/uL (1.2-6.7); Basophils % 0.2; Eosinophils % 0.2; HCT 33.4 % (36.0-46.0); HGB 11.3 g/dL (11.2-15.7); Immature Grans % 0.4; Lymphocytes % 9.9; MCH 33.8 pg (27.0-33.0); MCHC 33.8 % (32.0-36.0); MCV 100 fL (80-95); MPV 8.4 fL (8.0-11.0); Monocytes % 2.5; Neutrophils % 86.8; Platelet Count 222 10^3/uL (130-400); RBC 3.34 10^6/uL (3.93-5.22); RDW 12.8 % (11.7-14.6); RDW-SD 47.1 fL; WBC 17.81 10^3/uL (4.4-10.8)
[2023-11-05 23:48] LABS: ALT 22 U/L (14-59); AST 17 U/L (15-37); Albumin 3.1 g/dL (3.4-5.0); Alkaline Phosphatase 58 U/L (46-116); Anion Gap 10.3 mmol/L (3-11); BUN 10 mg/dL (7-18); Bilirubin, Total 0.3 mg/dL (0.2-1.0); CO2 25.7 mmol/L (21.0-32.0); CREATININE 0.5 mg/dL (0.55-1.02); Calcium 8.2 mg/dL (8.5-10.1); Chloride 105 mmol/L (98-107); Estimated GFR 127.72 (mL/min/1.73m2); Glucose 121 mg/dL (74-106); Lipase 18 U/L (16-77); Magnesium 1.8 mg/dL (1.8-2.4); Potassium 3.7 mmol/L (3.5-5.1); Sodium 141 mmol/L (136-145); Total Protein 6.5 g/dL (6.4-8.2)
[2023-11-06] VITALS (18 sets, daily range): BP systolic 95–112; BP diastolic 46–55; PULSE 57–77; RESP 18; O2SAT 98–100
[2023-11-06] MEDS: Ondansetron 4 MG/2 ML VIAL IVP
[2023-11-06] MEDS: Metoclopramide 10 MG/2 ML VIAL IVP (01:00)
[2023-11-06] MEDS: Lactated Ringers 1,000 ML 1000 ML IV ×2 (01:04)
== END 2023-11-06 02:24 | disposition home or self-care (01) ==
PROVIDERS: Emergency Provider Student in an Organized Health Care Education/Training Program; PCP Nurse Practitioner Family
DX: O21.1 Hyperemesis gravidarum with metabolic disturbance (principal); Z3A.24 24 weeks gestation of pregnancy
CPT/HCPCS: 76815; 80053; 83690; 96361; 96374; 96375; 99284; 83735; 85025; J2405; J2765

== ENCOUNTER → 2023-11-11 02:48 | Outpatient (CLI) | payer MEDICAID, SELFPAY ==
--- NOTE | 2023-11-11 07:00 | DI.US_ITS ---
Exam(s) US OB 2-3 TRIMESTER EXAM: US OB 2-3 TRIMESTER CLINICAL HISTORY: ,Z34.90. TECHNIQUE: Transabdominal obstetrical ultrasound performed. COMPARISON: US POCUS EXAM from 08/22/2023 US POCUS EXAM from 11/05/2023 FINDINGS: Number of fetuses: One. position: Breech Placental grade: 1 Placental location: Anterior no evidence of previa. BIOMETRIC DATA: BPD: 48mm = 20+ 3 weeks HC: 180mm = 20+ 3 weeks AC: 149mm = 20+ 1 weeks FL: 33mm = 20+ 3 weeks Cisterna Magna: mm Cerebellum: 2.0 cm EFW: 347 grms 56% Composite Age: 20+ 3 weeks EDC by US: 27 March 2024 Heart Rate: 153BPM Amniotic fluid : Amount of fluid is within normal limits. ANATOMICAL SURVEY: Four-chambered heart: Unremarkable. LVOT: Unremarkable. RVOT: Unremarkable. Left-sided stomach: Unremarkable. urinary bladder: Unremarkable. Bilateral kidneys: Unremarkable. Three-vessel cord: Unremarkable. Cord insertion: Unremarkable. Posterior fossa:Unremarkable. ventricles: Unremarkable. nose: Unremarkable. lips: Unremarkable. palate: Unremarkable. spine: Unremarkable. Two arms and two legs: Unremarkable. IMPRESSION: 1. Single live intrauterine gestation with ultrasound composite age of 20 weeks 3 days. 2. Normal anatomic survey. DATA REPOSITORY:
== END ==
PROVIDERS: PCP Nurse Practitioner Family; Visit Provider Advanced Practice Midwife
DX: Z34.92 Encounter for supervision of normal pregnancy, unspecified, second trimester (principal)
CPT/HCPCS: 76805

== ENCOUNTER 2024-01-07 01:26 | Outpatient (CLI) | payer MEDICAID, SELFPAY ==
[2024-01-07 11:35] LABS: HCT 33.1 % (36.0-46.0); HGB 11.3 g/dL (11.2-15.7); MCHC 34.1 % (32.0-36.0); MCV 100 fL (80-95); MPV 8.2 fL (8.0-11.0); Platelet Count 315 10^3/uL (130-400); RBC 3.32 10^6/uL (3.93-5.22); RDW 12.8 % (11.7-14.6); WBC 12.78 10^3/uL (4.4-10.8)
[2024-01-07 11:47] LABS: Glucose,1 Hr (Glucola) 75 mg/dL (80-140)
== END 2024-01-07 01:27 | disposition home or self-care (01) ==
LOC: LBO 01:26
PROVIDERS: PCP Nurse Practitioner Family; Visit Provider Advanced Practice Midwife
DX: Z34.92 Encounter for supervision of normal pregnancy, unspecified, second trimester (principal); Z3A.28 28 weeks gestation of pregnancy
CPT/HCPCS: 36415; 82950; 85027; 86850

== ENCOUNTER 2024-01-07 11:18 | Outpatient (REF) | payer MEDICAID, SELFPAY ==
[2024-01-07 12:41] LABS: *AMPHETAMINES SCREEN URINE Negative (Negative); *BARBITURATES SCREEN URINE Negative (Negative); *BENZODIAZEPINES SCREEN URINE Negative (Negative); Cannabinoids THC Positive (Negative); Cocaine Screen,Urine Negative (Negative); METHADONE URINE SCREEN Negative (Negative); OPIATES URINE SCREEN Negative (Negative); Tricyclic Antidepressants Negative (Negative)
[2024-01-08 12:05] LABS: Fentanyl Scr w/Rfx Confirm Negative ng/mL (<1)
[2024-01-14 10:24] LABS: Buprenorphine Negative ng/mL (Cutoff: 5.0)
== END 2024-01-07 11:19 | disposition home or self-care (01) ==
LOC: LBN 11:18
PROVIDERS: PCP Nurse Practitioner Family; Visit Provider Advanced Practice Midwife
DX: Z34.93 Encounter for supervision of normal pregnancy, unspecified, third trimester (principal); Z3A.28 28 weeks gestation of pregnancy
CPT/HCPCS: 80307; 80348

== ENCOUNTER → 2024-03-03 01:55 | Outpatient (CLI) | payer MEDICAID, SELFPAY ==
--- NOTE | 2024-03-03 07:15 | DI.US_ITS ---
Exam(s) US OB SHARATH WEIGHT EXAM: US OB SHARATH WEIGHT CLINICAL HISTORY: interval growth,SIZE OF FETUS INCONSISTENT WITH DATES,o26.843. TECHNIQUE: Transabdominal obstetrical ultrasound was performed. COMPARISON: US US OB 2-3 TRIMESTER from 11/11/2023 FINDINGS: There is a single viable intrauterine gestation with cardiac activity identified-129 bpm The fetus is presently in cephalic position . Amniotic fluid: There is a normal amount of amniotic fluid with an SHARATH of 12.7cm. Placental location: The placenta is anterior grade 2,with no evidence of placenta previa. Dating parameters place this at approximately 36 weeks and 5 days gestational age, implying JAYDA of 03/26/2024. BPD measures 38 weeks HC measures 39 weeks and 1 day AC measures 34 weeks and 4 days FL measures 35 weeks and 2 days Estimated weight is 2713 gm-6 pound 0 ounces Fetus is at the 33rd percentile on the Hadlock scale. IMPRESSION:: Viable 3rd trimester gestation, as described above. DATA REPOSITORY:
== END ==
PROVIDERS: Visit Provider Advanced Practice Midwife
DX: O26.843 Uterine size-date discrepancy, third trimester (principal)
CPT/HCPCS: 76816

== ENCOUNTER 2024-03-03 13:49 | Outpatient (REF) | payer MEDICAID, SELFPAY | END 2024-03-03 13:50 | disposition home or self-care (01) | LOC: LBN 13:49 | PROVIDERS: Visit Provider Advanced Practice Midwife | DX: Z34.93 Encounter for supervision of normal pregnancy, unspecified, third trimester (principal) | CPT/HCPCS: 87081 ==

== ENCOUNTER 2024-03-23 19:51 | Inpatient (IN) | payer MEDICAID, SELFPAY ==
[2024-03-23] VITALS (62 sets, daily range): BP systolic 97–224; BP diastolic 55–126; PULSE 0–91; RESP 16–18; TEMP 36.8; O2SAT 83–100; BMI 24.0
--- NOTE | 2024-03-23 20:14 | W.PM.OBHPL1 ---
Date of service: 03/23/24 Time of Service: 20:19 Assessment and Plan Assessment and plan (1) Spontaneous onset of labor: Status: Acute Assessment and plan: Admit to Center and routine admission labs with UDS. Comfort measures. Christine requests epidural for pain relief and Rachna andrade CRNA was paged. Anticipate . OB-HPI Labor/Delivery History of Present Illness Reason for Visit: labor Chief Complaint: Uterine Contractions. JAYDA Calculator Estimated Delivery Date Method Current WG Current Estimate 03/29/24 LMP (Certain) 39w 1d Other Estimates 03/30/24 Ultrasound #1 39w 0d History of Present Expected Delivery Route/Plan - CNM FOB/boyfriend - Kyle Branch (first baby together) PTSD BB no circ Wants regional anesthesia if time, not interested in nitrous GBS negative Jomar's Mom, Symone for labor support. Specific Issues/Plan 1. Tobacco use - trying to cut down. 2. Marijuana use- counselled, POSC done 2a. initial UDS + THC; UDS @ 28 wks + THC 3. cfDNA low risk x5, male. CF previously negative 4. History of depression. no medication treatment 5. Chronic back pain - lumbar lordosis - anesthesia consult 02/25/24 6. Rh neg, Kyle is A neg per dog tags. 7. Pap ASCUS + other types HPV, result sent to Dr. Lala, repeat PP is plan or colpo 8. taking OTC iron every other day to boost hgb 9. S<D @ 35 wks, EFW/SHARATH @ 36 wks=33%, SHARATH 12 PFSH All Active Problems (Updated 03/23/24 @ 20:18 by Radha Back CNM) Spontaneous onset of labor (Acute) ASCUS (atypical squamous cells of undetermined significance) on gynecologic Papanicolaou smear complicating , antepartum (Acute) HPV + other types, neg 16/18/45 Lumbosacral lordosis (Acute) (Acute) Marijuana use (Acute) Cigarette smoker (Acute 10/06/17) Anxiety (Acute 02/11/18) Medical History (Updated 03/23/24 @ 20:18 by Radha Back CNM) Chronic back pain History of depression Depression Surgical History Tonsillectomy and adenoidectomy Family History Other Breast cancer Diabetes GERD (gastroesophageal reflux disease) Hypercholesterolemia Hypertension Ovarian cancer Type 2 diabetes mellitus Uterine cancer Social History Smoking/Tobacco Use Status: Current every day Tobacco Type: cigarettes Tobacco: How many years used: 13 Quit status: has quit before Smoking risk assessment performed?: Yes Alcohol Intake: current Alcohol Intake frequency: 3 or more drinks per day Drug use: Daily Substance use type: marijuana Details: have not had alcohol in 7 days Household members: other Details: BF-Will. together since 12/2022 Housing: apartment Do you feel safe at home: Yes Do you feel safe in your relationship?: Yes Female Reproductive History Menstrual Age of Menarche: 13 Duration of menses: 3-5 days History History 6 Para 2 Hx # Term Pregnancies 2 Multiple births 0 Hx # Pregnancies 0 Ectopic pregnancies 0 AB induced 3 Hx Number of Living Children 2 AB spontaneous 0 Past Pregnancies Del. Date GA/Weeks # Preg Succ Route Wgt Sex Labor Lgth Anesthesia Location Prov [facility] 06/11/15 40 Yes vaginal 7 lb 6 oz Male [facility] 10/24/17 40 Yes vaginal 6 lb 11 oz Female [facility] Dr[facility] Lala Delivery Date: 06/11/15 Last Updated by: Twyla Morales Delivery Date: 10/24/17 Last Updated by: Radha Back CNM [facility] rapid delivery. Meds Allergies and Home Medications Allergies Allergy/AdvReac Type Severity Reaction Status Date / Time silver (Silver) Allergy Intermediate rash Verified 03/17/24 15:40 fentanyl AdvReac Intermediate Rash Verified 03/17/24 15:40 Home Medications ?Medication ?Instructions ?Recorded ?Confirmed ?Type ondansetron HCl 4 mg tablet 4 mg PO Q8H PRN nausea and 08/22/23 03/17/24 Rx vomiting #60 tabs vitamin 1 tab PO DAILY 08/22/23 03/17/24 History no.76-iron,carbonyl 29 mg iron-folic acid 1 mg tablet (Prenatabs Rx) Exam Physical Exam Vital Signs Reviewed: Yes Constitutional Constitutional: no acute distress Detailed Labor and Delivery Exam Dilation: 2 Effacement (%): 50 station: -1 Cervix position: posterior Consistency: soft Trimble Score: Cervical Points Exam 0 1 2 3 Dilation Closed 1-2cm 3-4 cm 5-6cm Effacement 0-30% 40-50% 60-70% 80% Consistency Firm Medium Soft Station -3 -2 -1,0 +1,+2 Position Posterior Mid Anterior Amniotic Membrane Status: Intact Monitor Mode: External Contraction Frequency(min): every 3-4 Contraction Duration(sec): 60 Contraction Intensity: Moderate/Strong Fetus A Heart Rate Baseline: 120 Monitor Accelerations: 15 X 15 Monitor Decelerations: None Variability: Moderate (6-25 BPM) Presentation: Cephalic Categories: Category I Est. Weight: 6 lb Risk Assessment Risk for Shoulder Dystocia Historical/Initial OB: NEGATIVE FOR: Pelvic Abnormality, Pre- BMI>30, Previous Shoulder Dystocia or Previous Macrosomia 36 Weeks: NEGATIVE FOR: Current Gestational DM, EFW>4500gms or Maternal Weight Gain>40lbs 40 Weeks: NEGATIVE FOR: EFW> 4500 gms, Maternal Weight Gain >40lb or Post Dates Risk for Pre-Eclampsia Yes, if one or more: NEGATIVE FOR: Hx Pre-E/Gest HTN, Chronic HTN, Multiple Gestation, Pre-gestational DM, Renal Disease, Systemic Lupus or APA Syndrome Yes, if 2 or more: NEGATIVE FOR: Nulliparity, Age>= 35 yrs, >10yr btwn pregnancies, BMI>30, ethinicty, Mother/Sister w/ Pre-E or Previous IUGR Risk for Post- Hemorrhage Initial: NEGATIVE FOR: Multiple Gestation, Previous PPH, Known Clotting Deficiency, Grand Multiparity or Anticoagulation 36 Weeks: NEGATIVE FOR: Anemia, hgb<10, Low platelets(thrombocytopenia), Gestational HTN or Pre-E, Polyhydraminios or EFW>4500gms 40 Weeks: NEGATIVE FOR: Anemia, hgb<10, Low platelets (thrombocytopenia), Gestation HTN or Pre-E, Polyhydraminios or EFW>4500gms Risks Reviewed Risks Reviewed Upon Admission: Yes
[2024-03-23 20:18] LABS: HCT 33.5 % (36.0-46.0); HGB 11.5 g/dL (11.2-15.7); MCH 34.7 pg (27.0-33.0); MCHC 34.3 % (32.0-36.0); MCV 101 fL (80-95); MPV 8.6 fL (8.0-11.0); Platelet Count 226 10^3/uL (130-400); RBC 3.31 10^6/uL (3.93-5.22); RDW 13.3 % (11.7-14.6); RDW-SD 49.7 fL
--- NOTE | 2024-03-23 21:09 | ANES.PREOP_ITS ---
General Info Date of Service Date Performed: 03/23/24 Height: 5 ft 4 in Weight: 63.503 kg Body Mass Index (BMI): 24.0 Meds Allergies and Home Medications Allergies Allergy/AdvReac Type Severity Reaction Status Date / Time silver (Silver) Allergy Intermediate rash Verified 03/17/24 15:40 fentanyl AdvReac Intermediate Rash Verified 03/17/24 15:40 Home Medication ?Medication ?Instructions ?Recorded ondansetron HCl 4 mg tablet 4 mg PO Q8H PRN nausea and 08/22/23 vomiting #60 tabs vitamin 1 tab PO DAILY 08/22/23 no.76-iron,carbonyl 29 mg iron-folic acid 1 mg tablet (Prenatabs Rx) Current Visit Medications: Current Medications Generic Name Dose Route Start Last Admin Trade Name Freq PRN Reason Stop Dose Admin IV Miscellaneous Supplies 1 each 03/23/24 19:45 Iv Access IV DIRECTED TRICIA Sodium Chloride 0 ml 03/23/24 19:33 Normal Saline Flush 10 Ml Syr IVP PRN PRN Sodium Chloride 0 ml 03/23/24 20:00 Normal Saline Flush 10 Ml Syr IVP BID TRICIA Sodium Chloride 0 ml 03/23/24 19:33 Normal Saline 10 Ml Vial IJ DIRECTED PRN PFSH Active Problems Active Problems: Problem Status Onset Code Spontaneous onset of labor Acute ASCUS (atypical squamous cells of undetermined significance) on gynecologic Papanicolaou smear complicating , antepartum Acute O28.2, R87.619 Lumbosacral lordosis Acute M40.57 Acute Z34.90 Marijuana use Acute F12.90 Cigarette smoker Acute 10/06/17 F17.210 Anxiety Acute 02/11/18 F41.9 Medical History Medical History (Updated 03/23/24 @ 20:18 by Radha Back CNM) Chronic back pain History of depression Depression Surgical History Surgical History Tonsillectomy and adenoidectomy Tobacco Smoking/Tobacco Use Status: Current every day Tobacco Type: cigarettes Alcohol Alcohol Intake: current Alcohol intake frequency: 3 or more drinks per day Substance Use Substance use: Daily Substance use type: marijuana Details: have not had alcohol in 7 days Prental History History 2 6 Para 2 Hx # Term Pregnancies 2 Multiple births 0 Hx # Pregnancies 0 Ectopic pregnancies 0 AB induced 3 Hx Number of Living Children 2 AB spontaneous 0 Past Pregnancies Del. Date GA/Weeks # Preg Succ Route Wgt Sex Labor Lgth Anesth esia Location Prov [facility] 06/11/15 40 Yes vaginal 3345.244 g Male [facility] 10/24/17 40 Yes vaginal 3033.399 g Female [facility] Lala Delivery Date: 06/11/15 Last Updated by: Twyla Morales Delivery Date: 10/24/17 Last Updated by: Radha Back CNM [facility] rapid delivery. Vital Signs and Lab Results Vital Signs Most Recent Vital Signs in EMR: Most Recent Vital Signs Temp Pulse Resp BP 36.8 C 70 16 109/62 03/23/24 20:15 03/23/24 21:06 03/23/24 20:15 03/23/24 20:15 Lab Results 03/23/24 20:08 Blood Type / Crossmatch: 2 Antibody Screen NEGATIVE 03/23/24 Complete Blood Count: 2 White Blood Count 12.80 10^3/uL (4.4-10.8) H 03/23/24 20:08 Red Blood Count 3.31 10^6/uL (3.93-5.22) L 03/23/24 20:08 Hemoglobin 11.5 g/dL (11.2-15.7) 03/23/24 20:08 Hematocrit 33.5 % (36.0-46.0) L 03/23/24 20:08 Platelet Count 226 10^3/uL (130-400) 03/23/24 20:08 Complete Metabolic Panel: 2 No Data to Display Liver Function Panel: 2 No Data to Display Coagulation Panel: 2 No Data to Display Cardiac Panel: 2 No Data to Display Arterial Blood Gas: 2 No Data to Display Venous Blood Gas: 2 No Data to Display Pancreas Panel: 2 No Data to Display Thyroid Panel: 2 No Data to Display Infectious Disease: 2 No Data to Display Blood Cultures: 2 No Data to Display Toxicology Panel: 2 No Data to Display Panel: 2 No Data to Display Anesthesia Assessment and Plan Anesthesia History Personal History: No History of Anesthesia Complications Family History: No Family History of Anesthesia Complications Exercise Tolerance Exercise Tolerance: Metabolic Equivalents>4 Pertinent Negatives Pertinent Negatives: No Major Cardiovascular Symptoms or Complaints and No Major Pulmonary Symptoms or Complaints Cardiac & Pulmonary Exam Cardiac Exam: Normal S1/S2 Heart Sounds Pulmonary Exam: Clear Bilateral Breath Sounds Implantable Cardiac Device Does patient have a Pacemaker or an ICD?: No Airway Exam Known Difficult Airway: No Mallampati Class: 1 Mouth Opening: Normal (> 3cm) Thyromental Distance: Greater than 3 cm Neck Range of Motion: Full ROM Neck Circumference: Normal Teeth Condition: Normal Dentition ASA Classification ASA Score: ASA 2 Emergency Case?: No NPO Status NPO Status: Full Stomach Status Status: Confirmed Anesthesia Plan Resuscitation Status: Full Code Anesthesia Technique: Labor Intrathecal Injection Airway Planned: Natural Airway Monitors Used: Standard Monitors
--- NOTE | 2024-03-23 21:21 | PGE_ITS ---
Date of service: 03/23/24 Time of Service: 21:21 Pelvic Exam Dilation: 3 Effacement (%): 50 station: -1 Cervix Position: posterior Consistency: soft Vaginal Exam Presentation: Cephalic Contractions Monitor Mode: External Contraction Frequency(min): evry 2-4 Contraction Duration(sec): 40-60 Intensity: Moderate Fetus A Monitor: External (US) Heart Rate Baseline: 120 Presentation: Cephalic Variability: Moderate (6-25 BPM) Categories: Category I FHR Rhythm: Regular Accelerations: 15 X 15 Decelerations: None Amniotic Membrane Status: Intact Assessment and Plan Assessment and plan (1) Spontaneous onset of labor: Status: Acute Assessment and plan: Christine is coping well with contractions and has support from her partner Will. SVE performed and cervix is unchanged at 2-3 cms. Category 1 tracing. Comfort measures provided. Will plan to page Rachna when Christine is close to delivery for intrathecal. Anticipate Objective Abnormal lab results 03/23/24 Range/Units 20:08 WBC 12.80 H (4.4-10.8) 10^3/uL RBC 3.31 L (3.93-5.22) 10^6/uL Hct 33.5 L (36.0-46.0) % MCV 101 H (80-95) fL MCH 34.7 H (27.0-33.0) pg Temp Pulse Resp BP 98.2 F 64 16 109/62 03/23/24 20:15 03/23/24 21:18 03/23/24 20:15 03/23/24 20:15 Laboratory Results WBC 12.80 10^3/uL (4.4-10.8) H 03/23/24 20:08 RBC 3.31 10^6/uL (3.93-5.22) L 03/23/24 20:08 Hgb 11.5 g/dL (11.2-15.7) 03/23/24 20:08 Hct 33.5 % (36.0-46.0) L 03/23/24 20:08 MCV 101 fL (80-95) H 03/23/24 20:08 MCH 34.7 pg (27.0-33.0) H 03/23/24 20:08 MCHC 34.3 % (32.0-36.0) 03/23/24 20:08 RDW 13.3 % (11.7-14.6) 03/23/24 20:08 Plt Count 226 10^3/uL (130-400) 03/23/24 20:08 MPV 8.6 fL (8.0-11.0) 03/23/24 20:08 ABO/Rh A Negative 03/23/24 20:08 Antibody Screen NEGATIVE 03/23/24 20:08 Subjective Patient Reports: No new Complaints Interval history since last seen: Rachna Almeida CRNA came to see Christine for epidural analgesia. Because a fentanyl- free epidural CADD has not been prepared by pharmacy, an epidural can not be given tonight. Rachna discussed intrathecal analgesia and timing in active labor. Christine was given the option of AROM or awaiting active labor or therapeutic rest and she would like to await active labor and ambulate and shower. Results Hemoglobin/Hematocrit: Hgb 11.5 g/dL (11.2-15.7) 03/23/24 20:08 Hct 33.5 % (36.0-46.0) L 03/23/24 20:08 Abnormal Lab Findings: Abnormal Labs 03/23/24 20:08 WBC 12.80 H RBC 3.31 L Hct 33.5 L MCV 101 H MCH 34.7 H
[2024-03-23 22:08] LABS: *AMPHETAMINES SCREEN URINE Negative (Negative); *BARBITURATES SCREEN URINE Negative (Negative); *BENZODIAZEPINES SCREEN URINE Negative (Negative); Cannabinoids THC Positive (Negative); Cocaine Screen,Urine Negative (Negative); METHADONE URINE SCREEN Negative (Negative); OPIATES URINE SCREEN Negative (Negative); Tricyclic Antidepressants Negative (Negative)
[2024-03-23] MEDS: Bupivacaine 0.25% Pres-Free 10 ML VIAL IT (23:03)
--- NOTE | 2024-03-23 23:18 | W.ANESPROC ---
Intrathecal Analgesia Date Performed: 03/23/24 Procedure Time: 23:00 Requesting Provider: Radha Back Procedure Location: Obstetrics Reason Performed: Labor Intrathecal Analgesia Standard Monitors Applied: Blood Pressure, SpO2 and See EMR for corresponding vital signs Patient Position: Sitting Timeout Performed: Yes Sedation Given (Indicate Dose Given): No Sedation given Patient Mental Status: Awake Sterility: Hand Hygiene, Surgical Cap, Surgical Mask, Sterile Gloves, Sterile Drape/Sheet and Chlorhexidine Placement Site: L3-L4 Interspace Spinal Needle Type: Sprotte 25 Gauge (25g) Needle Length: 3.5 Inch Spinal Procedure: Site Prepped, Sterile Drape Placed, 1% Lidocaine to skin and subcutaneous tissue with 25G needle, Introducer Needle Used, Spinal Needle Placed, Negative Heme, Positive CSF Flow and Medication Injected Paresthesia: None Spinal Local Anesthetic (Indicate Dose Given): Bupivacaine 0.25% PF (ml) Dose:: 1.2mL Additives (Indicate Dose Given): None Ultrasound: Not Used Number of Attempts (See previous attempts in note section): 1 Procedure Tolerated: No Complications Procedure Outcome: Unsuccessful (Patient reports patchy setup. Known Fentanyl allergy, concern for medication sensitivity. Discussed LA use only during consent. Patient verbalizes agreement.) Performed By: Rachna Almeida
[2024-03-23] MEDS: Oxytocin/Normal Saline 30 UNIT/500 ML BAG 95 UNITS IV (23:45)
[2024-03-24] VITALS (27 sets, daily range): BP systolic 97–128; BP diastolic 50–78; PULSE 52–73; RESP 16–18; TEMP 36.6; O2SAT 97
--- NOTE | 2024-03-24 00:38 | W.OBDELIVERY ---
Date of service: 03/24/24 Time of Service: 00:38 OB Labor/ Delivery Information Baby A Delivery Delivery Method: Spontaneaous Presentation: Cephalic Vertex Position: Left Occipital Anterior Cord Description-Baby A: 3 Vessels Amniotic Fluid: Meconium (light) Delivery Outcome: Liveborn Transferred: Remains with Mother Note: Christine used the shower and her contractions became stronger. She requested that AROM be performed aand she was 4 cms dilated. There was a small amount of light meconium noted. FHTs 120s during first stage of labor. Christine used nitrous oxide with fair effect and requested intrathecal. Rachna Almeida was paged and she provided an intrathecal with fair effect. She progressed quickly to full dilation and had an urge to bear down. FHTs 115-120s in second stage with early decelerations were noted with contractions. Second stage huddle was done. Spontaneous delivery of male infant delivered in KAYLEN position. There was a hand presenting with the face. The Baby was placed on mother's abdomen and dried and stimulated. He had a spontaneous cry. Cord was clamped and cut by the baby's father. The placenta delivered spontaneously at [address] Fagan was called and notidied. Soon after that the placenta delivered spontaneously Wagner and appears to by intact with a three vessel cord. Pitocin 30 un IV was administered before delivery of the placenta. The perineum was inspected and it is intact. The baby did breastfeed. After delivery, Mother and baby and father of the baby Dae were stable and bonding well in the delivery room and there were no complications. Providers Nurse Carton Stenciler: Radha Back [employer] Officer: Rachna Almeida Nurse: Virgie Davila Nurse: Cynthia Burton Labor/Delivery Information Number of Babies in Womb: 1 Steroids Given: None Reason Steroids Not Administered: N/A Group Beta Strep: Negative Antibiotics Administered: No Rubella Status: Immune Blood Type: A- Varicella Immunity: Immune Born En Route: No Maternal Complications: None Shoulder Dystocia: No Stages of Labor Onset of Labor Date: 03/23/24 Onset of Labor Time: 14:00 Complete Dilatation Date: 03/23/24 Complete Dilatation Time: 23:30 Labor - Stage 1 Duration: 9 hours and 30 minutes ROM Baby A: 03/23/24 ROM Baby A: 22:28 ROM Total Time- Baby A: [id number] Infant Delivery Date-Baby A: 03/23/24 Infant Delivery Time-Baby A: 23:41 Labor Stage 2 Duration: 11 minutes Placenta Delivery Date-Baby A: 03/24/24 Placenta Delivery Time-Baby A: 00:14 Labor-Stage 3 Duration: 33 minutes Total Length of Labor-Baby A: 9 hours and 41 minutes Placenta Cultured: No Placenta Status: Delivered Baby A Infant Gender: Male Gestational Status: Term (39-41.6 wks) Gestational Age in Weeks/Days: 39 Weeks and 1 Days weight: 6 lb 6.824 oz Score-5 Minute Interval(Baby A) Heart Rate- 5 minute: 100 BPM or Greater Respiratory Effort-5 minute: Spontaneous/Strong Cry Muscle Tone-5 minute: Active Movement Reflex Response-5 minute: Prompt Response Color-5 minute: Bluish Hands or Feet Total Score- 5 minute: 9
[2024-03-24] MEDS: Ondansetron O.D.T. 4 MG TABEF 8 MG PO (02:43)
--- NOTE | 2024-03-24 17:06 | W.ANESPOSTOP ---
Postoperative Evaluation Date, Time and Location Date Performed: 03/24/24 Time Performed: 17:06 Patient Location: Obstetrics Vital Signs Most Recent Imported Vital Signs: Most Recent Vital Signs Temp Pulse Resp BP Pulse Ox 36.8 C 64 17 110/64 100 03/23/24 20:15 03/24/24 07:48 03/24/24 16:00 03/24/24 07:48 03/23/24 23:38 Pain Score Most Recent Pain Score: Most Recent Pain Score Pain Level 0 03/24/24 16:00 Assessment Mental Status: Awake (Alert & Oriented to Patient Baseline) Airway and Respiratory Function: Patent airway with normal (patient baseline) respiratory exam Cardiovascular Function: Hemodynamically Stable Hydration Status: Adequately Hydrated Nausea & Vomiting: No Nausea or Vomiting Pain: Pain is tolerable per patient Peripheral Nerve Block: Patient did not receive a nerve block
[2024-03-25 01:30] VITALS: RESP 17
--- NOTE | 2024-03-25 04:01 | W.PM.OBPNV1 ---
Date of service: 03/25/24 Time of Service: 04:01 Assessment and Plan Assessment and plan (1) Term of male : Status: Acute Assessment and plan: Caring for baby independently. Pain is managed well with oral analgesics. Voiding without difficulty. well. A - stable mother and baby , Post day 1 P - Discharge to home tomorrow. Routine post instructions. [facility] Subjective Subjective Patient comments: No complaints baby status: Doing well [place] feeding status: Exclusively breast feeding Exam Physical Exam Vital signs: Temp Pulse Resp BP Pulse Ox 97.9 F 73 17 116/66 97 03/24/24 19:40 03/24/24 19:40 03/25/24 01:30 03/24/24 19:40 03/24/24 19:40 Vital Signs Reviewed: Yes Constitutional Constitutional: no acute distress Respiratory Exam Respiratory Exam: Normal Cardiovascular Exam Cardiovascular Exam: Normal Fundal Exam Fundus: Below Umbilicus and Firm Extremities Exam Extremity Exam: Normal Psychiatric Exam Psychiatric Exam: Normal Results Hemoglobin/Hematocrit: Hgb 11.5 g/dL (11.2-15.7) 03/23/24 20:08 Hct 33.5 % (36.0-46.0) L 03/23/24 20:08 Abnormal Lab Findings: Abnormal Labs 03/23/24 03/23/24 20:08 21:25 WBC 12.80 H RBC 3.31 L Hct 33.5 L MCV 101 H MCH 34.7 H Ur THC Screen Positive A
[2024-03-25 08:25] VITALS: BP 103/64; PULSE 98; RESP 16; TEMP 36.7; O2SAT 98
--- NOTE | 2024-03-25 09:47 | W.PM.OBPNV1 ---
Date of service: 03/25/24 Time of Service: 09:47 Assessment and Plan Assessment and plan (1) Encounter for routine follow-up: Status: Acute Assessment and plan: A: PPD#2, discharge to home Nml recovery, going well P: Pt desires discharge today Written instructions reviewed and given to pt F/up @ 2 and 6 weeks Condoms are planned for BCM (2) Care and examination of lactating mother: Status: Acute Subjective Subjective Patient comments: No complaints, Pain well controlled, Tolerating diet and Bowel Movement Patient's Mood: pleased Sebastian baby status: Doing well, Nursing well, Rooming in and Strong Bonding Observed feeding status: Exclusively breast feeding Exam Physical Exam Vital signs: Temp Pulse Resp BP Pulse Ox 98.1 F 98 H 16 103/64 98 03/25/24 08:25 03/25/24 08:25 03/25/24 08:25 03/25/24 08:25 03/25/24 08:25 Vital Signs Reviewed: Yes Constitutional Constitutional: no acute distress and cooperative HEENT Exam HEENT Exam: Normal Neck Exam Neck Exam: Normal Breast Exam Bilateral: Breast Exam: Normal and Soft Nipple Exam: Normal and Uninjured Respiratory Exam Respiratory Exam: Normal Cardiovascular Exam Cardiovascular Exam: Normal Abdominal Exam Abdomen: Other (soft, nontender) Fundal Exam Fundus: Below Umbilicus and Firm Rectal Exam Rectal Exam: Normal Exam Patient deferred: external exam Extremities Exam Extremity Exam: Normal, Full ROM and Warm to Touch Back/Spine/Pelvis Exam Back Exam: Normal Skin Exam Skin Exam: Normal Neurological Exam Neurological Exam: Normal Psychiatric Exam Psychiatric Exam: Normal
--- NOTE | 2024-03-25 11:14 | W.PM.OBDISCH ---
Date of service: 03/25/24 Time of Service: 11:14 DS: Diagnosis Discharge Diagnosis (1) Encounter for routine follow-up: Status: Acute (2) Care and examination of lactating mother: Status: Acute Discharge Plan Disposition Patient Disposition: Home Condition: Good Discharge Details Reason For Visit: labor Admit Date/Time: 03/23/24 19:51 Admit Provider: Radha Back Attending Provider: Radha Back Primary Care Provider: Unknown,Unknown Hospital Course Hospital Course: , nml course, discharge on PPD#2 Home Meds and New Rx's Prescriptions: No Action Prenatabs Rx 29 mg iron- 1 mg tablet 1 tab PO DAILY Discharge Instructions Additional Instructions: please keep your 2 and 6 wk appointments, call for any and all questions or concerns. Stand Alone Forms: BC Instructions, BC Post Vaginal Deliver Activity:: Activity as Tolerated Equipment/Supplies:: No Equipment Needed Diet:: Normal Diet OB:DS Summary Summary Vaginal Delivery Method: Spontaneaous Episiotomy Description: None Laceration Description: None Laceration Extension: N/A Contraception Discussed Contraception Discussed: Yes Contraceptive Plan: Foam/Condoms, [place] Infant Gender-Baby A: Male weight: 6 lb 6.824 oz Status at Discharge Functional status at discharge: independent ambulation Overall status at discharge: patient is progressing back to baseline Mental Status: mental status grossly normal Speech and Movement: speech and movement normal and speech clear Mood: congruent mood Affect: normal affect Quality:SDOH Health Related Social Needs: No Data to Display Exam Physical Exam Vital signs: Temp Pulse Resp BP Pulse Ox 98.1 F 98 H 16 103/64 98 03/25/24 08:25 03/25/24 08:25 03/25/24 08:25 03/25/24 08:25 03/25/24 08:25 Constitutional Constitutional: no acute distress and cooperative HEENT Exam HEENT Exam: Normal Neck Exam Neck Exam: Normal Breast Exam Bilateral: Breast Exam: Normal and Soft Respiratory Exam Respiratory Exam: Normal Cardiovascular Exam Cardiovascular Exam: Normal Abdominal Exam Abdomen: Other (soft, nontender) Fundal Exam Fundus: Below Umbilicus and Firm Rectal Exam Rectal Exam: Normal Exam Patient deferred: external exam Perineum: Intact Extremities Exam Extremity Exam: Normal, Full ROM and Warm to Touch Back/Spine/Pelvis Exam Back Exam: Normal Skin Exam Skin Exam: Normal Neurological Exam Neurological Exam: Normal Psychiatric Exam Psychiatric Exam: Normal PFSH All Active Problems (Updated 03/25/24 @ 09:49 by Lexy Man) Care and examination of lactating mother (Acute) Encounter for routine follow-up (Acute) Term of male (Acute) ASCUS (atypical squamous cells of undetermined significance) on gynecologic Papanicolaou smear complicating , antepartum (Acute) HPV + other types, neg 16/18/45 Lumbosacral lordosis (Acute) Marijuana use (Acute) Cigarette smoker (Acute 10/06/17) Anxiety (Acute 02/11/18) Medical History (Updated 03/25/24 @ 09:49 by Lexy Man) Chronic back pain History of depression Depression Surgical History Tonsillectomy and adenoidectomy Family History Other Breast cancer Diabetes GERD (gastroesophageal reflux disease) Hypercholesterolemia Hypertension Ovarian cancer Type 2 diabetes mellitus Uterine cancer Social History Smoking/Tobacco Use Status: Current every day Tobacco Type: cigarettes Tobacco: How many years used: 13 Quit status: has quit before Smoking risk assessment performed?: Yes Alcohol Intake: current Alcohol Intake frequency: 3 or more drinks per day Drug use: Daily Substance use type: marijuana Details: have not had alcohol in 7 days Household members: other Details: BF-Will. together since 12/2022 Housing: apartment Do you feel safe at home: Yes Do you feel safe in your relationship?: Yes Female Reproductive History Menstrual Age of Menarche: 13 Duration of menses: 3-5 days History History 6 Para 2 Hx # Term Pregnancies 2 Multiple births 0 Hx # Pregnancies 0 Ectopic pregnancies 0 AB induced 3 Hx Number of Living Children 2 AB spontaneous 0 Past Pregnancies Del. Date GA/Weeks # Preg Succ Route Wgt Sex Labor Lgth Anesthesia Location Prov Complic 06/11/15 40 Yes vaginal 7 lb 6 oz Male [facility] 10/24/17 40 Yes vaginal 6 lb 11 oz Female [facility] Dr[facility] Lala Delivery Date: 06/11/15 Last Updated by: Twyla Morales Delivery Date: 10/24/17 Last Updated by: Radha Back CNM [facility] rapid delivery. DS: Data Vitals/I&O Vitals and I&O: Vital Signs Temperature 98.1 F 03/25/24 08:25 Temperature Source Oral 03/23/24 20:15 Temperature Source Oral 03/25/24 08:25 Pulse 98 H 03/25/24 08:25 Pulse Rhythm Regular 03/25/24 08:25 Respiratory Rate 16 03/25/24 08:25 Respiratory Depth Normal 03/24/24 08:01 Blood Pressure 103/64 03/25/24 08:25 Blood Pressure Mean 77 03/25/24 08:25 Pulse Oximetry 98 03/25/24 08:25 Oxygen Delivery Method Room Air 03/23/24 19:41 Oxygen Flow Rate 0 03/23/24 19:41 Pain Level 1 03/25/24 08:25 Intake & Output 03/24/24 03/24/24 03/25/24 11:59 23:59 11:59 Output Total 650 / 1100 450 / 1100 Balance -650 / -1100 -450 / -1100 Output: Urine 250 / 700 450 / 700 Emesis 400 / 400 Other: Urine Color Yellow
[2024-03-25 15:58] LABS: Fentanyl Scr w/Rfx Confirm Negative ng/mL (<1)
[2024-04-02 11:27] LABS: Buprenorphine Negative ng/mL (Cutoff: 5.0)
== END 2024-03-25 13:05 | disposition home or self-care (01) | DRG 807 ==
PROVIDERS: Admitting Provider Advanced Practice Midwife; Visit Provider Advanced Practice Midwife
DX: O99.334 Smoking (tobacco) complicating childbirth (principal); Z37.0 Single live birth; O99.324 Drug use complicating childbirth; F12.90 Cannabis use, unspecified, uncomplicated; F17.210 Nicotine dependence, cigarettes, uncomplicated; O99.344 Other mental disorders complicating childbirth; F41.9 Anxiety disorder, unspecified; Z3A.39 39 weeks gestation of pregnancy; M40.46 Postural lordosis, lumbar region; R87.610 Atypical squamous cells of undetermined significance on cytologic smear of cervix (ASC-US); O75.89 Other specified complications of labor and delivery
CPT/HCPCS: 62322; 80307; 80348; 85027; 86850; 86900; 86901; J0665

== ENCOUNTER 2024-05-05 10:59 | Outpatient (REF) | payer MEDICAID, SELFPAY ==
--- NOTE | 2024-05-05 10:00 | PAPFT_PTH ---
PATIENT: Christine Booker LOC: [facility] U#:[id number] AGE/SX: 33/F ROOM: RE05/05/[address]: Lexy Man CNM : 1990 BED: DIS: 05/05/2024 SPEC #: [id number] RECD: 05/05/24 13:01 STATUS: KRISTOPHER REQ #: [id number] ELAINA: 05/05/24 10:[address]: Lexy Man DEPT: ON LICENSE OF [facility] Cytology RECD BY: Rina Thomas ENTERED: 05/05/24 13:01 SP TYPE: PAPFT OT DR: Unknown,Unknown Tissues: 1 - CX/ENDOCX FOR PAP SMEARS Procedures: PAP THIN PREP/UVM Screening HPV DNA PROBE Comments: [id number] (HPV 16 & 18/45)
== END 2024-05-05 11:00 | disposition home or self-care (01) ==
LOC: LBN 10:59
PROVIDERS: Visit Provider Advanced Practice Midwife
DX: Z12.4 Encounter for screening for malignant neoplasm of cervix (principal)
CPT/HCPCS: 88142; 87624

== ENCOUNTER 2024-05-28 14:13 | Outpatient (REF) | payer MEDICAID, SELFPAY ==
--- NOTE | 2024-05-28 14:10 | ENDO_PTH ---
PATIENT: Christine Booker LOC: [facility] U#:[id number] AGE/SX: 33/F ROOM: RE05/28/[address]: Jerica Fagan DO : 1990 BED: DIS: 05/28/2024 SPEC #: [id number] RECD: 05/28/24 15:39 STATUS: SOUT REQ #: [id number] ELAINA: 05/28/24 14:[address]: Jerica Fagan DEPT: Surgical Specimen RECD BY: Rina Thomas ENTERED: 05/28/24 15:40 SP TYPE: Endo OTHR DR: Unknown,Unknown Tissues: 1 - ENDOCERVICAL BX/CURRETTE Procedures: GROSS AND MICRO LEVEL 4 Comments: [id number]
== END 2024-05-28 14:14 | disposition home or self-care (01) ==
LOC: LBN 14:13
PROVIDERS: Visit Provider Obstetrics & Gynecology
DX: R87.611 Atypical squamous cells cannot exclude high grade squamous intraepithelial lesion on cytologic smear of cervix (ASC-H) (principal)
CPT/HCPCS: 88305

== ENCOUNTER 2024-09-14 04:38 | Outpatient (CLI) | payer MEDICAID, SELFPAY ==
[2024-09-14 12:15] LABS: Panorama Kit Sent via Fed Ex
[2024-09-14 12:21] LABS: Abs Immature Grans 0.04 10^3/uL (0.0-0.06); Absolute Basophil Count 0.04 10^3/uL (0.0-0.2); Absolute Eosinophil Count 0.27 10^3/uL (0.0-0.7); Absolute Monocyte Count 0.57 10^3/uL (0.1-0.8); Absolute Neutrophil Count 4.76 10^3/uL (1.2-6.7); Basophils % 0.4 %; HCT 39.1 % (36.0-46.0); HGB 13.2 g/dL (11.2-15.7); Immature Grans % 0.4 %; Lymphocytes % 36.7 %; MCH 32.3 pg (27.0-33.0); MCHC 33.8 % (32.0-36.0); MCV 96 fL (80-95); MPV 8.4 fL (8.0-11.0); Monocytes % 6.3 %; Neutrophils % 53.2 %; Platelet Count 254 10^3/uL (130-400); RBC 4.09 10^6/uL (3.93-5.22); RDW 12.5 % (11.7-14.6); RDW-SD 44.4 fL; WBC 8.98 10^3/uL (4.4-10.8)
[2024-09-15 09:08] LABS: Hepatitis B Surface Ag Negative (Negative)
[2024-09-15 09:43] LABS: HIV-1/2 Ag & Ab Screen Negative (Negative)
[2024-09-15 09:48] LABS: Varicella IgG Antibody Positive (See Note)
[2024-09-15 09:52] LABS: Rubella IgG Ab (UVM) Positive (See Note)
[2024-09-15 11:02] LABS: Hepatitis C Ab w Rflx HCV PCR Negative (Negative)
[2024-09-16 19:32] LABS: Syphilis IgG w/Reflex Nonreactive (Nonreactive)
== END 2024-09-14 04:39 | disposition home or self-care (01) ==
LOC: LBO 04:39
PROVIDERS: Visit Provider Advanced Practice Midwife
DX: Z34.91 Encounter for supervision of normal pregnancy, unspecified, first trimester (principal)
CPT/HCPCS: 36415; 86787; 86803; 86850; 86900; 86901; 87340; 87389; 85025; 86762; 86780

== ENCOUNTER 2024-09-14 11:55 | Outpatient (REF) | payer MEDICAID, SELFPAY ==
[2024-09-14 13:11] LABS: *AMPHETAMINES SCREEN URINE Negative (Negative); *BARBITURATES SCREEN URINE Negative (Negative); *BENZODIAZEPINES SCREEN URINE Negative (Negative); Cannabinoids THC Positive (Negative); Cocaine Screen,Urine Negative (Negative); METHADONE URINE SCREEN Negative (Negative); OPIATES URINE SCREEN Negative (Negative)
[2024-09-14 13:14] LABS: Tricyclic Antidepressants Negative (Negative)
[2024-09-15 11:19] LABS: Fentanyl Scr w/Rfx Confirm Negative ng/mL (<1)
[2024-09-15 12:53] LABS: Chlamydia Result Negative (Negative); GC Result Negative (Negative)
[2024-09-18 06:14] LABS: Buprenorphine Negative ng/mL (Cutoff: 5.0); Norbuprenorphine Negative ng/mL (Cutoff: 2.5)
== END 2024-09-14 11:56 | disposition home or self-care (01) ==
LOC: LBN 11:55
PROVIDERS: Visit Provider Advanced Practice Midwife
DX: Z34.91 Encounter for supervision of normal pregnancy, unspecified, first trimester (principal)
CPT/HCPCS: 80307; 80348; 87491; 87591; 87086

== ENCOUNTER 2024-10-19 02:54 | Outpatient (CLI) | payer MEDICAID, SELFPAY ==
[2024-10-21 14:24] LABS: GA used in risk estimate Scan estimate; IVF Pregnancy No; Initial or repeat testing Initial testing; Insulin dependent diabetes No; Maternal Weight 129 lbs; Number of Fetuses 1; Physician Phone Number 802-748-7300; Prev Pregnancy w/NTD No; RECOMMENDED FOLLOW UP None.; Results Summary Normal risk
== END 2024-10-19 02:55 | disposition home or self-care (01) ==
LOC: LBO 02:54
PROVIDERS: Visit Provider Advanced Practice Midwife
DX: Z34.91 Encounter for supervision of normal pregnancy, unspecified, first trimester (principal)
CPT/HCPCS: 36415; 82105

== ENCOUNTER 2024-11-10 01:46 | Outpatient (CLI) | payer MEDICAID, SELFPAY ==
--- NOTE | 2024-11-10 07:00 | DI.US_ITS ---
Exam(s) US OB 2-3 TRIMESTER EXAM: US OB 2-3 TRIMESTER CLINICAL HISTORY: survey,z34.90. TECHNIQUE: Transabdominal obstetrical ultrasound was performed. COMPARISON: US POCUS EXAM from 10/12/2024 FINDINGS: There is a single viable intrauterine gestation with cardiac activity identified-151 bpm. Amniotic fluid: There is a normal amount of amniotic fluid. Placental location: The placenta is posterior grade 1,with no evidence of placenta previa.The distanc e between the tip of the placenta and the internal cervical os is 3.8 cm. There is a distance of only 2 cm between the insertion site of the cord on the placenta and the place ntal margin. ANATOMY: A 3 vessel umbilical cord is seen. A four-chamber cardiac view was obtained. Right and left ventricular outflow tracts were imaged. There are no obvious abnormalities of the spinal column evident. There is no obvious abnormal ity of the anterior abdominal wall. stomach and urinary bladder are identified and there is no evidence of hydronephrosis. No abnormalities of the upper lip region are identified. No evidence of choroid plexus cysts i n the brain. Dating parameters place this at approximately 19 weeks and 2 days gestational age. BPD measures 19 weeks and 2 days HC measures 19 weeks and 5 days AC measures 19 weeks and 4 days FL measures 18 weeks and 5 days Estimated weight is 280 gm-0 pounds 10 ounces Fetus is at the 50th percentile on the Hadlock scale. IMPRESSION:: Single viable intrauterine gestation which is approximately 19 weeks and 2 days gestati onal age, implying an JAYDA of April 04, 2025. There are no obvious anomalies evident on today's study. The placenta is posterior with no evidence of placenta previa. However, there is a somewhat marginal placental cord insertion with a distance of only 2 cm between the insertion site of the umbilical co rd onto the placenta and the placental margin. There is a normal amount of amniotic fluid. DATA REPOSITORY:
== END 2024-11-10 02:06 ==
PROVIDERS: Visit Provider Advanced Practice Midwife
DX: Z34.92 Encounter for supervision of normal pregnancy, unspecified, second trimester (principal); Z3A.20 20 weeks gestation of pregnancy
CPT/HCPCS: 76805

== ENCOUNTER 2024-11-30 16:50 | Emergency (ER) | payer MEDICAID, SELFPAY ==
[2024-11-30 17:03] VITALS: BP 104/66; PULSE 83; RESP 20; TEMP 36.9; O2SAT 96
--- NOTE | 2024-11-30 17:15 | DI.RAD_ITS ---
Exam(s) XR ANKLE LT 2V EXAM: XR ANKLE LT 2V CLINICAL HISTORY: Fall TECHNIQUE: 2D digital imaging was performed. Two views. COMPARISON: CR XR FOOT LT COMPLETE from 11/30/2024 FINDINGS: BONES: No acute fracture is present. No bony destructive lesion is seen. JOINTS:The ankle mortise is normally aligned. SOFT TISSUE: Normal. IMPRESSION: Unremarkable radiographs of the left ankle. DATA REPOSITORY: RADIATION DOSE DELIVERED:
--- NOTE | 2024-11-30 17:15 | DI.RAD_ITS ---
Exam(s) XR FOOT LT COMPLETE EXAM: XR FOOT LT COMPLETE CLINICAL HISTORY: Fall down stairs. TECHNIQUE: 2D digital imaging was performed. Three views. COMPARISON: No exams were available for comparison FINDINGS: BONES: There is a minimally displaced fracture extending transversely through the base of the proxima l phalanx of the 5th toe. There is no extension to the articular surface. No additional fractures a re seen. No bony destructive lesion is seen. JOINTS: No dislocation present. SOFT TISSUE: Normal. IMPRESSION: Fracture of the proximal phalanx of the 5th toe. DATA REPOSITORY: RADIATION DOSE DELIVERED:
--- NOTE | 2024-11-30 17:18 | ED.GENADUL_ITS ---
Discharge Plan Disposition Patient Disposition: Home Condition: Stable Discharge Details Clinical Impression: Closed fracture of fifth toe of left foot Primary Care Provider: Unknown,Unknown ED Provider: Tequila Dougherty Home Meds and New Rx's Prescriptions: No Action multivitamin Tablet 1 tab PO DAILY ondansetron 4 mg tablet,disintegrating 4 mg PO Q6H PRN (Reason: nausea and vomiting) 30 Days Qty: 60 4RF Discharge Instructions Instructions: Walking Boot, Toe Fracture ED Additional Instructions: X-ray shows that you have a fracture of the proximal phalanx of your fifth toe. Please wear the walking boot for comfort. Rest ice compression elevation when sitting or laying down. You may try roni taping however this may make it worse and hurt more if it hurts more just take it off. This should heal on its own however please follow-up with orthopedics in the next 1 to 2 weeks. You are placed on the care management list they should be calling you for an appointment. Please take Tylenol with food every 4-6 hours as needed for pain and swelling. Thank you for allowing us to care for you today. Referrals: Keshav Alatorre MD [ [facility] STAFF PHYSICIAN] - 2 weeks HPI General Mode of arrival: ambulatory . Date/Time Provider Initiated Documentation: 11/30/24 17:09 . Limitations to Documentation: no limitations . Information obtained by: patient, RN notes reviewed and old records reviewed . HPI Narrative: 34-year-old female presents to the ER with a chief complaint of left lateral foot pain after a trip and slipped downs approximately 6 stairs. Patient is 6 months . Denies any abdominal pain no neck or back pain did not hit her head. She does have swelling noted to the lateral side of her foot and pinky toe. Distal CMS intact. No obvious deformity. Did not take any medications prior to arrival. Related Data Home Medications ?Medication ?Instructions ?Recorded ?Confirmed multivitamin 1 tab PO DAILY 04/07/24 11/30/24 ondansetron 4 mg disintegrating 4 mg PO Q6H PRN nausea and 08/10/24 11/30/24 tablet vomiting 30 days #60 tabs Previous Rx's ?Medication ?Instructions ?Recorded ondansetron 4 mg disintegrating 4 mg PO Q6H PRN nausea and 08/10/24 tablet vomiting 30 days #60 tabs Allergies Allergy/AdvReac Type Severity Reaction Status Date / Time silver (Silver) Allergy Intermediate rash Verified 11/30/24 17:02 fentanyl AdvReac Intermediate Rash Verified 11/30/24 17:02 General Stated Complaint: Orthopedic SUJEY: 4 Review of Systems All systems reviewed & are unremarkable except as noted in HPI and below Musculoskeletal Musculoskeletal: Reports as per HPI and Reports arthralgias Exam Resp Effort & Inspection: normal respiratory effort and able to speak in complete s entences Auscultation: clear to auscultation bilaterally Cardio Rate: regular rate Rhythm: regular rhythm Heart Sounds: S1 normal and S2 normal Extrem General: normal to inspection Left lower extremity: knee Details: normal to inspection, lower leg Details: normal to inspection, ankle Details: normal to inspection and no edema and foot Details: normal capillary refill, abnormal to inspection Details: joint swelling, tenderness and edema Course Vital Signs Vital signs: Vital Signs Temperature 36.9 C 11/30/24 17:03 Pulse 83 11/30/24 17:03 Respiratory Rate 20 11/30/24 17:03 Blood Pressure 104/66 11/30/24 17:03 Pulse Oximetry 96 11/30/24 17:03 Temperature 36.9 C 11/30/24 17:03 Temperature Source Oral 11/30/24 17:03 Pulse 83 11/30/24 17:03 Respiratory Rate 20 11/30/24 17:03 Blood Pressure 104/66 11/30/24 17:03 Blood Pressure Position Sitting 11/30/24 17:03 Pulse Oximetry 96 11/30/24 17:03 Oxygen Delivery Method Room Air 11/30/24 17:03 Oxygen Flow Rate 0 11/30/24 17:03 Pain Level 4 11/30/24 17:03 Medical Decision Making 34-year-old female presents to the ER with a chief complaint of left lateral foot pain after a trip and slipped downs approximately 6 stairs. Patient is 6 months . Denies any abdominal pain no neck or back pain did not hit her head. She does have swelling noted to the lateral side of her foot and pinky toe. Distal CMS intact. No obvious deformity. Did not take any medications prior to arrival. X-ray of left foot and ankle ordered. I did discuss radiation exposure with patient he she verbalized understanding. X-ray of left foot shows a fracture of the proximal phalanx of the fifth toe. Minimally displaced. Will place in a walking boot. Will give referral to orthopedics. This text was generated using [employer] system, please disregard any oddities of phrase or misspellings. Imaging Data Radiologic Study: Imaging: X-Ray Radiologist's impression: EXAM: XR FOOT LT COMPLETE CLINICAL HISTORY: Fall down stairs. TECHNIQUE: 2D digital imaging was performed. Three views. COMPARISON: No exams were available for comparison FINDINGS: BONES: There is a minimally displaced fracture extending transversely through the base of the proximal phalanx of the 5th toe. There is no extension to the articular surface. No additional fractures are seen. No bony destructive lesion is seen. JOINTS: No dislocation present. SOFT TISSUE: Normal. IMPRESSION: Fracture of the proximal phalanx of the 5th toe. Quality:SDOH Health Related Social Needs: No Data to Display PFSH All Active Problems (Updated 11/30/24 @ 17:48 by Tequila Dougherty NP) Closed fracture of fifth toe of left foot (Acute) Marginal insertion of umbilical cord affecting management of mother (Acute) (Acute) Depression, (Acute) Lumbosacral lordosis (Acute) Marijuana use (Acute) Cigarette smoker (Acute 10/06/17) Anxiety (Acute 02/11/18) Medical History Pap smear of cervix with ASCUS, cannot exclude HGSIL Pap smear. Colpo 05/28/2024-ECC. No biopsies. Benign Pap 05/2025 Care and examination of lactating mother Term of male Chronic back pain History of depression Depression Surgical History Tonsillectomy and adenoidectomy Family History Other Breast cancer Diabetes GERD (gastroesophageal reflux disease) Hypercholesterolemia Hypertension Ovarian cancer Type 2 diabetes mellitus Uterine cancer Social History Smoking/Tobacco Use Status: Current every day Tobacco Type: cigarettes Tobacco: How many years used: 13 Quit status: has quit before Smoking risk assessment performed?: Yes Alcohol Intake: current Alcohol Intake frequency: 3 or more drinks per day Drug use: Daily Substance use type: marijuana Details: have not had alcohol in 7 days Household members: other Details: BF-Will. together since 12/2022 Housing: apartment Do you feel safe at home: Yes Do you feel safe in your relationship?: Yes Female Reproductive History Menstrual Age of Menarche: 13 Duration of menses: 3-5 days History History 7 Para 3 Hx # Term Pregnancies 3 Multiple births 0 Hx # Pregnancies 0 Ectopic pregnancies 0 AB induced 3 Hx Number of Living Children 3 AB spontaneous 0 Past Pregnancies Del. Date GA/Weeks # Preg Succ Route Wgt Sex Labor Lgth Anesth esia Location Prov Compl 06/11/15 40 Yes vaginal 3345.244 g Male [facility] 10/24/17 40 Yes vaginal 3033.399 g Female [facility] L[facility] 03/23/24 39 No Yes vaginal 2920.001 g Male 9hrs 41min [facility] JERARDO [place] Delivery Date: 06/11/15 Last Updated by: Twyla Morales Delivery Date: 10/24/17 Last Updated by: Radha Back CNM [facility] rapid delivery. Delivery Date: 03/23/24 Last Updated by: JERARDO Benitezon. Intrathecal provided as fentanyl-free epidural cassette was not available.
[2024-11-30 18:00] VITALS: BP 104/66; PULSE 83; RESP 20; TEMP 36.9; O2SAT 100
== END 2024-11-30 18:34 | disposition home or self-care (01) ==
PROVIDERS: Emergency Provider Registered Nurse Emergency
DX: O9A.212 Injury, poisoning and certain other consequences of external causes complicating pregnancy, second trimester (principal); S92.512A Displaced fracture of proximal phalanx of left lesser toe(s), initial encounter for closed fracture; O99.332 Smoking (tobacco) complicating pregnancy, second trimester; F17.210 Nicotine dependence, cigarettes, uncomplicated; Z3A.24 24 weeks gestation of pregnancy; W01.0XXA Fall on same level from slipping, tripping and stumbling without subsequent striking against object, initial encounter; Y93.01 Activity, walking, marching and hiking; Y92.89 Other specified places as the place of occurrence of the external cause
CPT/HCPCS: 99283; 73600; 73630

== ENCOUNTER 2025-01-04 01:35 | Outpatient (CLI) | payer MEDICAID, SELFPAY ==
--- NOTE | 2025-01-04 06:15 | DI.RAD_ITS ---
Exam(s) XR TOE LT FIFTH EXAM: XR TOE LT FIFTH CLINICAL HISTORY: ? healing closed fx 5th toe lt foot,s92.502a. TECHNIQUE: 2D digital imaging was performed. COMPARISON: CR XR FOOT LT COMPLETE from 11/30/2024 FINDINGS: 3 views Again noted is previously described fracture in the proximal phalanx of the 5th toe. Fracture line s till visible but without for significant further displacement. No additional fractures evident. No radiopaque foreign bodies. No evidence of osteomyelitis. IMPRESSION: Stable appearance DATA REPOSITORY: RADIATION DOSE DELIVERED:
== END 2025-01-04 01:55 ==
LOC: DI 01:35
PROVIDERS: Visit Provider Podiatrist
DX: S92.512D Displaced fracture of proximal phalanx of left lesser toe(s), subsequent encounter for fracture with routine healing (principal); X58.XXXD Exposure to other specified factors, subsequent encounter
CPT/HCPCS: 73660

== ENCOUNTER 2025-01-05 05:00 | Outpatient (CLI) | payer MEDICAID, SELFPAY ==
[2025-01-05 10:34] LABS: HGB 11.3 g/dL (11.2-15.7); MCH 33.7 pg (27.0-33.0); MCHC 33.2 % (32.0-36.0); MCV 102 fL (80-95); MPV 8.5 fL (8.0-11.0); Platelet Count 239 10^3/uL (130-400); RBC 3.35 10^6/uL (3.93-5.22); RDW 12.8 % (11.7-14.6); RDW-SD 48.2 fL
[2025-01-05 11:02] LABS: Glucose,1 Hr (Glucola) 129 mg/dL (80-140)
== END 2025-01-05 05:01 | disposition home or self-care (01) ==
LOC: LBO 05:01
PROVIDERS: Visit Provider Advanced Practice Midwife
DX: Z34.92 Encounter for supervision of normal pregnancy, unspecified, second trimester (principal); Z3A.27 27 weeks gestation of pregnancy
CPT/HCPCS: 36415; 82950; 85027

== ENCOUNTER 2025-01-24 13:36 | Outpatient (REF) | payer MEDICAID, SELFPAY ==
[2025-01-24 16:54] LABS: *AMPHETAMINES SCREEN URINE Negative (Negative); *BARBITURATES SCREEN URINE Negative (Negative); *BENZODIAZEPINES SCREEN URINE Negative (Negative); Cannabinoids THC Positive (Negative); Cocaine Screen,Urine Negative (Negative); METHADONE URINE SCREEN Negative (Negative); OPIATES URINE SCREEN Negative (Negative)
[2025-01-24 16:56] LABS: Tricyclic Antidepressants Negative (Negative)
[2025-01-25 11:25] LABS: Fentanyl Scr w/Rfx Confirm Negative ng/mL (<1)
[2025-02-01 11:30] LABS: Buprenorphine Negative ng/mL (Cutoff: 5.0)
== END 2025-01-24 13:37 | disposition home or self-care (01) ==
LOC: LBN 13:36
PROVIDERS: Visit Provider Advanced Practice Midwife
DX: Z34.93 Encounter for supervision of normal pregnancy, unspecified, third trimester (principal)
CPT/HCPCS: 80307; 80348

== ENCOUNTER 2025-02-01 02:19 | Outpatient (CLI) | payer MEDICAID, SELFPAY ==
--- NOTE | 2025-02-01 06:30 | DI.US_ITS ---
Exam(s) US OB SHARATH WEIGHT EXAM: US OB SHARATH WEIGHT CLINICAL HISTORY: marginal cord insertion,z34.90. TECHNIQUE: Transabdominal obstetrical ultrasound was performed. COMPARISON: US US OB 2-3 TRIMESTER from 11/10/2024 FINDINGS: There is a single viable intrauterine gestation with cardiac activity identified-135 bpm The fetus is presently in cephalic position . Amniotic fluid: There is a normal amount of amniotic fluid with an SHARATH of 16.88cm. Placental location: The placenta is posterior grade 1,with no evidence of placenta previa.The distance between the cord insertion and the margin of the placenta is 2.7 cm on today's study which is similar to previous. Dating parameters place this at approximately 31 weeks and 6 days gestational age, implying JAYDA of March 30, 2025. BPD measures 31 weeks and 6 days HC measures 33 weeks and 0 days AC measures 31 week and 3 days FL measures 31 weeks and 1 day Estimated weight is 1780 gm-3 pounds, 15 ounces Fetus is at the 55th percentile on the Hadlock scale. IMPRESSION:: Viable 3rd trimester gestation, as described above. Present in cephalic position Normal amount of amniotic fluid. Posterior placenta grade 1. No placenta previa. The distance between the margin of the placenta and the cord insertion upon the placenta is 2.7 cm which is similar to previous studies. DATA REPOSITORY:
== END 2025-02-01 02:39 ==
LOC: DI 02:19
PROVIDERS: Visit Provider Advanced Practice Midwife
DX: Z34.93 Encounter for supervision of normal pregnancy, unspecified, third trimester (principal); Z3A.31 31 weeks gestation of pregnancy
CPT/HCPCS: 76816

== ENCOUNTER 2025-02-08 03:13 | Outpatient (CLI) | payer MEDICAID, SELFPAY ==
--- NOTE | 2025-02-08 08:55 | DI.RAD_ITS ---
Exam(s) XR TOE LT FIFTH EXAM: XR TOE LT FIFTH CLINICAL HISTORY: ? HEALING,DISPLACED FX PROXIMAL PHALANX LT LESSER TOE. TECHNIQUE: 2D digital imaging was performed. Three views were obtained. COMPARISON: CR XR TOE LT FIFTH from 01/04/2025 FINDINGS: BONES: There has been no change in alignment of the fracture involving the proximal phalanx of the 5th toe. The fracture lines are less well visualized suggesting some interval healing. No bony destructive lesion is seen. JOINTS: No dislocation present. SOFT TISSUE: Normal. IMPRESSION: Stable alignment of the fracture involving the proximal phalanx of the 5th toe. DATA REPOSITORY: RADIATION DOSE DELIVERED:
== END 2025-02-08 03:33 ==
PROVIDERS: Visit Provider Podiatrist
DX: S92.512D Displaced fracture of proximal phalanx of left lesser toe(s), subsequent encounter for fracture with routine healing (principal); X58.XXXD Exposure to other specified factors, subsequent encounter
CPT/HCPCS: 73660

== ENCOUNTER 2025-03-08 13:04 | Outpatient (REF) | payer MEDICAID, SELFPAY | END 2025-03-08 13:05 | disposition home or self-care (01) | LOC: LBN 13:04 | PROVIDERS: Visit Provider Advanced Practice Midwife | DX: Z34.93 Encounter for supervision of normal pregnancy, unspecified, third trimester (principal) | CPT/HCPCS: 87081 ==

== ENCOUNTER 2025-03-08 13:11 | Outpatient (CLI) | payer MEDICAID, SELFPAY ==
[2025-03-08] MEDS: IRON SUCROSE COMPLEX 200 MG in Normal Saline 100 ML 400 MG IVPB (13:50)
== END 2025-03-08 14:08 ==
LOC: BCD 13:14 → OBS 13:52
PROVIDERS: Visit Provider Advanced Practice Midwife
DX: O99.013 Anemia complicating pregnancy, third trimester (principal); Z3A.36 36 weeks gestation of pregnancy
CPT/HCPCS: 96365; J1756

== ENCOUNTER 2025-03-09 00:49 | Inpatient (IN) | payer MEDICAID, SELFPAY ==
[2025-03-09] VITALS (98 sets, daily range): BP systolic 98–120; BP diastolic 51–74; PULSE 8–120; RESP 16–18; TEMP 36.4–36.8; O2SAT 81–100; BMI 24.6
--- NOTE | 2025-03-09 01:04 | W.PM.OBHPL1 ---
Date of service: 03/09/25 Time of Service: 01:05 Assessment and Plan Assessment and plan (1) Anemia affecting : Status: Acute Assessment and plan: Received one dose of iron sucrose yesterday for fingerstick hgb 9.8 (2) 36 weeks gestation of : Status: Acute Assessment and plan: Pt appears tired/sleepy and calm, coping well with contractions by breathing Accompanied by FOB and their toddler son as well as her sister Pt states she would like to have her epidural now might as well Consented for PCN prophylaxis d/t late dating and unknown GBS status (3) Uterine contractions: Status: Acute Assessment and plan: A: 34 yo @ 36 wks, spontaneous onset of labor Hx adverse reax to fentanyl, anesthesia consult done during in prep for planned epidural Category 1 tracing, one isolated variable during vaginal exam on admit Low risk for SD, increased risk PPH d/t anemia GBS+, Rh neg & FOB known Rh neg, anemia treated with iron infusion x1 yesterday P: Admit to L&D, CBC and T&S; initiate IV access, CASE PACKER paged cEFM due to occasional variable, generally reassuring cat 1 PCN prophylaxis and epidural anesthesia at pt request Crib to be provided for toddler safety Anticipate (4) Marijuana use: Status: Acute Assessment and plan: POSC completed with [facility] (5) Cigarette smoker: Status: Acute OB-HPI Labor/Delivery History of Present Illness Reason for Visit: NST Chief Complaint: Uterine Contractions (contractions began around 1999, gradually increasing in strength and frequency, no ROM, no bleeding, no nausea.). JAYDA Calculator Estimated Delivery Date Method Current WG Current Estimate 04/05/25 Ultrasound #1 36w 1d Other Estimates 03/06/25 LMP (Uncertain) 40w 3d History of Present Expected Delivery Route/Plan - CNM FOB - [place] (2nd baby together) PTSD BB (FOB only made aware to plan gender reveal constitution party) Plans epidural Specific Issues/Plan 1. Close pregnancies: conception @ 3-4 mo PP 2. Hx depression/anxiety, smoking & MJ use (5P+); initial UDS THC+, repeat @ 28 wks: THC+, FCP 02/15/25 3. Known CF carrier screen negative, cfDNA low risk male 4. Colpo done 06/20, next PAP due 5. Rh neg, FOB also Rh neg (army dogtags) 6. FOB has PTSD, pancreatic tumor (inactive), lung problems from burn pit exposure 7. Nausea- Zofran PRN daily in the morning. 8. Due to fentanyl allergy, requires specially prepared epidural cassette - anesthesia consultation after 28 weeks, done. 8a. Per Gordo Fournier CRNA: We will be getting a 0.2% ropivacaine WITHOUT fentanyl epidural cassette in the next week that will be stored in the OB Pyxis. When preprocedure epidural order is placed, it should be for the 0.2%, not the 0.1% we usually use. Pharmacy will have a total of 4 others of these in case they are needed. 8b. [facility] [place] sheet has been created at the Center 9. Marginal cord insertion - repeat US for growth at 32 weeks- SHARATH 16, EFW 55%ile Assessment: History Reviewed & Current Informed Consent Informed Consent: Regional Anesthesia and Risk,Benefits,Alternatives Discussed Review of Systems All systems reviewed & are unremarkable except as noted in HPI and below PFSH All Active Problems (Updated 03/09/25 @ 01:04 by Lexy Man) Anemia affecting (Acute) 36 weeks gestation of (Acute) Uterine contractions (Acute) Displaced fracture of proximal phalanx of left lesser toe(s), initial encounter for closed fracture (Acute) Marginal insertion of umbilical cord affecting management of mother (Acute) (Acute) Depression, (Acute) Lumbosacral lordosis (Acute) Marijuana use (Acute) Cigarette smoker (Acute 10/06/17) Anxiety (Acute 02/11/18) Medical History (Updated 03/09/25 @ 01:04 by Lexy Man) Fentanyl adverse reaction Edema Pain in left foot Pap smear of cervix with ASCUS, cannot exclude HGSIL Pap smear. Colpo 05/28/2024-ECC. No biopsies. Benign Pap 05/2025 Care and examination of lactating mother Term of male Chronic back pain History of depression Depression Surgical History Tonsillectomy and adenoidectomy Family History Other Breast cancer Diabetes GERD (gastroesophageal reflux disease) Hypercholesterolemia Hypertension Ovarian cancer Type 2 diabetes mellitus Uterine cancer Social History Smoking/Tobacco Use Status: Current every day Tobacco Type: cigarettes Tobacco: How many years used: 13 Quit status: has quit before Smoking risk assessment performed?: Yes Alcohol Intake: current Alcohol Intake frequency: 3 or more drinks per day Drug use: Daily Substance use type: marijuana Details: have not had alcohol in 7 days Household members: other Details: BF-Will. together since 12/2022 Housing: apartment Do you feel safe at home: Yes Do you feel safe in your relationship?: Yes Female Reproductive History Menstrual Age of Menarche: 13 Duration of menses: 3-5 days History History 7 Para 3 Hx # Term Pregnancies 3 Multiple births 0 Hx # Pregnancies 0 Ectopic pregnancies 0 AB induced 3 Hx Number of Living Children 3 AB spontaneous 0 Past Pregnancies Del. Date GA/Weeks # Preg Succ Route Wgt Sex Labor Lgth Anesthesia Location Prov Complic 06/11/15 40 Yes vaginal 7 lb 6 oz Male [facility] 10/24/17 40 Yes vaginal 6 lb 11 oz Female [facility] Dr. Lala 03/23/24 39 No Yes vaginal 6 lb 7 oz Male 9hrs 41min [facility] JERARDO [place] Delivery Date: 06/11/15 Last Updated by: Twyla Cohen Coreal Delivery Date: 10/24/17 Last Updated by: Radha Back CNM [facility] rapid delivery. Delivery Date: 03/23/24 Last Updated by: JERARDO Benitezon. Intrathecal provided as fentanyl-free epidural cassette was not available. Meds Allergies and Home Medications Allergies Allergy/AdvReac Type Severity Reaction Status Date / Time silver (Silver) Allergy Intermediate rash Verified 03/08/25 12:54 fentanyl AdvReac Intermediate Rash Verified 03/08/25 12:54 Home Medications ?Medication ?Instructions ?Recorded ?Confirmed ?Type multivitamin 1 tab PO DAILY 04/07/24 03/08/25 History ondansetron 4 mg disintegrating 4 mg PO Q6H PRN nausea and 08/10/24 03/08/25 Rx tablet vomiting 30 days #60 tabs Exam Physical Exam Vital signs: Pulse BP 69 107/57 L 03/09/25 00:32 08/13/25 00:32 Vital Signs Reviewed: Yes Constitutional Constitutional: mild distress, thin and cooperative Detailed Labor and Delivery Exam Dilation: 5 Effacement (%): 90 station: -2 Cervix position: mid Consistency: soft Amniotic Membrane Status: Intact (forebag palpable) Monitor Mode: External Contraction Frequency(min): irregular, q3-6 Contraction Intensity: Moderate Fetus A Heart Rate Baseline: 125 Monitor Accelerations: 15 X 15 Monitor Decelerations: Variable Variability: Moderate (6-25 BPM) Categories: Category I (isolated and infrequent periodic variable noted, continuous EFM) Est. Weight: 6 lb 2.767 oz Est. Weight: 2800 gms HEENT Exam HEENT Exam: Normal Neck Exam Neck Exam: Normal Chest/Brest/Axilla Exam Chest Exam: Normal Breast Exam Breast Exam: Not Done Respiratory Exam Respiratory Exam: Normal Cardiovascular Exam Cardiovascular Exam: Normal Abdominal Exam Abdominal Exam: Normal (Gravid, nontender) Rectal Exam Rectal Exam: Normal Exam Exam: Normal Extremities Exam Extremities Exam: Normal Back/Spine/Pelvis Exam Back Exam: Normal Pelvis Adequate: Yes Skin Exam Skin Exam: Normal Neurological Exam Neurological Exam: Normal Psychiatric Exam Psychiatric Exam: Normal Results Results Group Beta Strep: Done-Result Unknown Blood Type: A- Rubella Status: Immune Varicella Immunity: Immune Risk Assessment Risk for Shoulder Dystocia Historical/Initial OB: NEGATIVE FOR: Pelvic Abnormality, Pre- BMI>30, Previous Shoulder Dystocia or Previous Macrosomia 36 Weeks: NEGATIVE FOR: Current Gestational DM, EFW>4500gms or Maternal Weight Gain>40lbs Increased Risk?: No Delivery Plan @ 36wks: Risk for Pre-Eclampsia Yes, if one or more: NEGATIVE FOR: Hx Pre-E/Gest HTN, Chronic HTN, Multiple Gestation, Pre-gestational DM, Renal Disease, Systemic Lupus or APA Syndrome Yes, if 2 or more: NEGATIVE FOR: Nulliparity, Age>= 35 yrs, >10yr btwn pregnancies, BMI>30, ethinicty, Mother/Sister w/ Pre-E or Previous IUGR Risk for Post- Hemorrhage Initial: NEGATIVE FOR: Multiple Gestation, Previous PPH, Known Clotting Deficiency, Grand Multiparity or Anticoagulation 36 Weeks: POSITIVE FOR: Anemia, hgb<10; NEGATIVE FOR: Low platelets(thrombocytopenia), Gestational HTN or Pre-E, Polyhydraminios or EFW>4500gms At Risk?: Yes (d/t anemia) Counseled re: Active Management: Yes Risks Reviewed Risks Reviewed Upon Admission: Yes
[2025-03-09 01:09] LABS: HCT 30.9 % (36.0-46.0); HGB 10.5 g/dL (11.2-15.7); MCH 33.1 pg (27.0-33.0); MCHC 34.0 % (32.0-36.0); MCV 98 fL (80-95); MPV 9.0 fL (8.0-11.0); Platelet Count 266 10^3/uL (130-400); RBC 3.17 10^6/uL (3.93-5.22); RDW 13.1 % (11.7-14.6); RDW-SD 46.9 fL; WBC 13.83 10^3/uL (4.4-10.8)
--- NOTE | 2025-03-09 01:18 | W.OBNST ---
Date of service: 03/09/25 Time of Service: 01:00 NST Evaluation Reason for NST Reasons for Nonstress Test: LABOR Gestational Age Gestational Age in Weeks and Days: 36 Weeks and 1Days Test and Monitor Explained Test/Monitor Explained: Test Explained and Monitor Explained Vital Signs Blood Pressure: 107/57 Pulse: 69 NST Information Date on Monitor: 03/09/25 Time on Monitor: 00:10 Date off Monitor: 03/09/25 Time off Monitor: 00:47 Total Time on Monitor: 37 NST Interventions: None Contraction Frequency: 2-5 NST Evaluation Patient States Movement: Present FHR Baseline: 135 Variability: Moderate 6-25 bpm Accelerations: 15x15 Decelerations: Variable NST Results Other: pt in labor Note Ultrasound Done: N/A. NST Note Note: Admit in labor NST Reviewed and Verified by: Lexy Man
[2025-03-09] MEDS: Penicillin G POT. 5,000,000 UNITS in Normal Saline 100 ML 200 UNITS IVPB (01:21)
--- NOTE | 2025-03-09 02:12 | ANES.NEUR_ITS ---
Epidural/Spinal Catheter Date Performed: 03/09/25 Procedure Start: 01:50 Procedure Stop: 02:30 Requesting Provider: Lexy Man Procedure Location: Obstetrics Reason Performed: Labor Epidural Standard Monitors Applied: Blood Pressure, SpO2 and See EMR for corresponding vital signs Patient Position: Sitting Sedation Given (Indicate Dose Given): No Sedation given Patient Mental Status: Awake Sterility: Hand Hygiene, Surgical Cap, Surgical Mask, Sterile Gloves, Sterile Drape/Sheet and Chlorhexidine Procedure Location: L3-L4 Interspace Epidural Needle: Tuohy 18 Gauge Needle Length: 3.5 Inch Needle Approach: Midline Epidural Procedure: Skin Prepped, Sterile Drape Placed, 1% Lidocaine to skin and subcutaneous tissue with 25G needle, Tuohy Needle placed, HIMANSHU to Saline Used, Epidural Catheter Placed, Negative Heme, Negative CSF Flow and Tuohy Needle Removed Catheter Placed?: Catheter Placed Test Dose (Indicate Dose Given): 3ml 1.5% Lidocaine with 1:200K Epinephrine Given and Negative Test Dose Loss of Resistance Depth (cm): 5 Catheter depth at skin (cm): 11 Dressing: [place] Dressing Placed, Mastisol Used and Dressing reinforced with Tape Epidural Provid er Bolus (Indicate Dose Given): Total bolus dose given in 3-5 ml divided doses and Total Bupivacaine 0.25% Given (ml) Dose:: 4 ml Additives (Indicate Dose Given ): None Infusion Medication: Medication Infusion Began Medication Infusion: Other (Ropivacaine 0.2% without fentanyl) Maintenance Infusion Rate (ml/hour): 10 PCEA Bolus Dose (ml): 4 Post Procedure Pain score (0-10): 0 Block Level: N/A Paresthesia: None Ultrasound: Not Used Number of Attempts (See previous attempts in note section): 1 Procedure Tolerated: No Complications and Patient tolerated well Procedure Outcome: Successful Procedure Comment:: Infusion cassette not immediately available, therefore I gave 0.25% bupivacaine bolus with relief of contraction pain. Once cassette at bedside, infusion began. Straight forward epidural placement. Educated on pPCEA use. Questions answered. Performed By: Gordo Fournier
--- NOTE | 2025-03-09 02:23 | W.PM.OBNL1 ---
Date of service: 03/09/25 Time of Service: 02:23 Informed Consent Informed Consent: Regional Anesthesia and Risk,Benefits,Alternatives Discussed Pelvic Exam Dilation: 7 Effacement (%): 90 station: -2 Contractions Monitor Mode: External Contraction Frequency(min): irreg Intensity: Moderate/Strong Fetus A Monitor: External (US) Heart Rate Baseline: 125 Variability: Moderate (6-25 BPM) Categories: Category I (intermittent periodic variable occurs when pt supine, remains category 1 when laterally positioned) Accelerations: 15 X 15 Decelerations: Variable (intermittently, positional) Amniotic Membrane Status: Intact Assessment and Plan Assessment and plan (1) Uterine contractions: Status: Acute Assessment and plan: A: Progressed to 7 cm, epidural in place and effective Category 1 tracing when pt laterally positioned P: Pt dozing now, 1st dose of PCN infused Encourage rest and optimal positioning 2nd dose of PCN due in 3 hrs Anticipate Objective Abnormal lab results 03/09/25 Range/Units 01:04 WBC 13.83 H (4.4-10.8) 10^3/uL RBC 3.17 L (3.93-5.22) 10^6/uL Hgb 10.5 L (11.2-15.7) g/dL Hct 30.9 L (36.0-46.0) % MCV 98 H (80-95) fL MCH 33.1 H (27.0-33.0) pg Pulse BP Pulse Ox 77 113/58 L 97 03/09/25 02:22 03/09/25 02:20 03/09/25 02:22 Laboratory Results WBC 13.83 10^3/uL (4.4-10.8) H 03/09/25 01:04 RBC 3.17 10^6/uL (3.93-5.22) L 03/09/25 01:04 Hgb 10.5 g/dL (11.2-15.7) L 03/09/25 01:04 Hct 30.9 % (36.0-46.0) L 03/09/25 01:04 MCV 98 fL (80-95) H 03/09/25 01:04 MCH 33.1 pg (27.0-33.0) H 03/09/25 01:04 MCHC 34.0 % (32.0-36.0) 03/09/25 01:04 RDW 13.1 % (11.7-14.6) 03/09/25 01:04 Plt Count 266 10^3/uL (130-400) 03/09/25 01:04 MPV 9.0 fL (8.0-11.0) 03/09/25 01:04 ABO/Rh A Negative 03/09/25 01:04 Antibody Screen NEGATIVE 03/09/25 01:04 Vital Signs Reviewed: Yes Subjective Interval history since last seen: Epidural is effective, pt sleepy and ready to nap
--- NOTE | 2025-03-09 02:30 | W.ANESPRE ---
General Info Date of Service Date Performed: 03/09/25 Height: 5 ft 3 in Weight: 63.049 kg Body Mass Index (BMI): 24.6 Meds Allergies and Home Medications Allergies Allergy/AdvReac Type Severity Reaction Status Date / Time silver (Silver) Allergy Intermediate rash Verified 03/08/25 12:54 fentanyl AdvReac Intermediate Rash Verified 03/08/25 12:54 Home Medication ?Medication ?Instructions ?Recorded multivitamin 1 tab PO DAILY 04/07/24 ondansetron 4 mg disintegrating 4 mg PO Q6H PRN nausea and 08/10/24 tablet vomiting 30 days #60 tabs Current Visit Medications: Current Medications Generic Name Dose Route Start Last Admin Trade Name Freq PRN Reason Stop Dose Admin Ringer's Solution 1,000 mls @ 125 mls/hr 03/09/25 01:00 IV INFUSION [facility] Penicillin G Potassium 3,000, 50 mls @ 100 mls/hr 03/09/25 05:30 000 units/ Sodium Chloride IVPB Q4H [facility] Ropivacaine 500 mg/ Sodium 250 mls @ 0 mls/min 03/09/25 02:30 Chloride/ Device IJ DIRECTED [facility] IV Miscellaneous Supplies 1 each 03/09/25 01:00 Iv Access IV DIRECTED [facility] Sodium Chloride 0 ml 03/09/25 00:48 Normal Saline Flush 10 Ml Syr IVP PRN PRN Sodium Chloride 0 ml 03/09/25 08:30 Normal Saline Flush 10 Ml Syr IVP BID TRICIA Sodium Chloride 0 ml 03/09/25 00:48 Normal Saline 10 Ml Vial IJ DIRECTED PRN PFSH Active Problems Active Problems: Problem Status Onset Code Anemia affecting Acute O99.019 36 weeks gestation of Acute Z3A.36 Uterine contractions Acute O47.9 Displaced fracture of proximal phalanx of left lesser toe(s), initial encounter for closed fracture Acute S92.512A Marginal insertion of umbilical cord affecting management of mother Acute O43.199 Acute Z34.90 Depression, Acute F53.0 Lumbosacral lordosis Acute M40.57 Marijuana use Acute F12.90 Cigarette smoker Acute 10/06/17 F17.210 Anxiety Acute 02/11/18 F41.9 Medical History Medical History (Updated 03/09/25 @ 01:04 by Lexy Man) Fentanyl adverse reaction Edema Pain in left foot Pap smear of cervix with ASCUS, cannot exclude HGSIL Pap smear. Colpo 05/28/2024-ECC. No biopsies. Benign Pap 05/2025 Care and examination of lactating mother Term of male Chronic back pain History of depression Depression Surgical History Surgical History Tonsillectomy and adenoidectomy Tobacco Smoking/Tobacco Use Status: Current every day Tobacco Type: cigarettes Alcohol Alcohol Intake: current Alcohol intake frequency: 3 or more drinks per day Substance Use Substance use: Daily Substance use type: marijuana Details: have not had alcohol in 7 days Prental History History 7 Para 3 Hx # Term Pregnancies 3 Multiple births 0 Hx # Pregnancies 0 Ectopic pregnancies 0 AB induced 3 Hx Number of Living Children 3 AB spontaneous 0 Past Pregnancies Del. Date GA/Weeks # Preg Succ Route Wgt Sex Labor Lgth Anesthesia Location [facility] 06/11/15 40 Yes vaginal 3345.244 g Male [facility] [place] 10/24/17 40 Yes vaginal 3033.399 g Female [facility] Dr[facility] Lala 03/23/24 39 No Yes vaginal 2920.001 g Male 9hrs 41min [facility] JERARDO Beckford Delivery Date: 06/11/15 Last Updated by: Twyla Cohen Msreal Delivery Date: 10/24/17 Last Updated by: Radha Back CNM [facility] rapid delivery. Delivery Date: 03/23/24 Last Updated by: JERARDO Benitez. Intrathecal provided as fentanyl-free epidural cassette was not available. Vital Signs and Lab Results Vital Signs Most Recent Vital Signs in EMR: Most Recent Vital Signs Pulse BP Pulse Ox 67 113/58 L 98 03/09/25 02:27 03/09/25 02:20 03/09/25 02:27 Lab Results 03/09/25 01:04 Blood Type / Crossmatch: Antibody Screen NEGATIVE Today Complete Blood Count: WBC, (4.4-10.8) 13.83 10^3/uL H Today, 01:04 RBC, (3.93-5.22) 3.17 10^6/uL L Today, 01:04 Hgb, (11.2-15.7) 10.5 g/dL L Today, 01:04 Hct, (36.0-46.0) 30.9 % L Today, 01:04 Plt Count, (130-400) 266 10^3/uL Today, 01:04 Anesthesia Assessment and Plan Anesthesia History Personal History: No History of Anesthesia Complications Family History: No Family History of Anesthesia Complications Exercise Tolerance Exercise Tolerance: Metabolic Equivalents>4 Cardiac & Pulmonary Exam Cardiac Exam: Normal S1/S2 Heart Sounds Pulmonary Exam: Clear Bilateral Breath Sounds Implantable Cardiac Device Does patient have a Pacemaker or an ICD?: No Airway Exam Known Difficult Airway: No Mallampati Class: 1 Mouth Opening: Normal (> 3cm) Thyromental Distance: Greater than 3 cm Neck Range of Motion: Full ROM Neck Circumference: Normal Teeth Condition: Normal Dentition ASA Classification ASA Score: ASA 2 Emergency Case?: No NPO Status NPO Status: Full Stomach Status Status: Confirmed Anesthesia Plan Resuscitation Status: Full Code Anesthesia Technique: Labor Epidural Airway Planned: Natural Airway Monitors Used: Standard Monitors
[2025-03-09] MEDS: Ondansetron 4 MG/2 ML VIAL IVP (04:33)
[2025-03-09] MEDS: Penicillin G POT. 3,000,000 UNITS in Normal Saline 50 ML 100 UNITS IVPB (05:15)
[2025-03-09] MEDS: Oxytocin/Normal Saline 30 UNIT/500 ML BAG 334 UNITS IV (07:55)
--- NOTE | 2025-03-09 09:10 | OBVDS_ITS ---
Date of service: 03/09/25 Time of Service: 09:00 OB Labor/ Delivery Information Baby A Delivery Delivery Method: Spontaneaous Presentation: Cephalic Cephalic Position: Vertex Vertex Position: Right Occipital Anterior Breech Position: N/A Cord Description-Baby A: 3 Vessels, Nuchal Cord and Reduced (overhead) Amniotic Fluid: Meconium Quantitative Blood Loss: 100 ml Delivery Outcome: Liveborn Infant Transferred: Remains with Mother Note: Pt rested well after epidural anesthesia was placed, 2nd dose of PCN infused, SVE at 0730 for full dilation with large forebag in vaginal vault, tracing had maintained category 1 status for several hours. AROM after pt consented to procedure for large amount of meconium stained fluid with vtx @ +1 station, shortly thereafter with strong maternal efforts of a vigorous male over intact perineum, nuchal cord noted x1 and reduced overhead, shoulders delivered with ease and infant placed on mother's abdomen immediately. pitocin bolus initiated IV, cord clamped at 3 minutes of age and cut by FOB, cord blood collected and Ignacio placenta delivered intact with 3VC. Vulva and vagina inspected and found to be without laceration, lochia was minimal and fundus firm below umbilicus. Apgars 9/9, weight 2670 gms. Providers Nurse Account Specialist: Lexy Man Nurse: Jammie Peck Nurse: Stacey Huynh Labor/Delivery Information Number of Babies in Womb: 1 Steroids Given: None Reason Steroids Not Administered: N/A Group Beta Strep: Done-Result Unknown Antibiotics Administered: Yes Number of Doses of Antibiotics: 2 Rubella Status: Immune Blood Type: A- Varicella Immunity: Immune Medication in Delivery: IV Pitocin Maternal Complications: None Shoulder Dystocia: No Stages of Labor Onset of Labor Date: 03/08/25 Complete Dilatation Date: 03/09/25 Complete Dilatation Time: 07:30 ROM Baby A: 03/09/25 ROM Baby A: 07:42 ROM Total Time- Baby A: [id number] Delivery Date-Baby A: 03/09/25 Delivery Time-Baby A: 07:54 Labor Stage 2 Duration: 24 minutes Placenta Delivery Date-Baby A: 03/09/25 Placenta Delivery Time-Baby A: 07:59 Labor-Stage 3 Duration: 5 minutes Placenta Cultured: No Placenta Status: Delivered Baby A Infant Gender: Male Gestational Status: Late (34-36.6 wks) Gestational Age in Weeks/Days: 36 Weeks and 1 Days weight: 5 lb 14.181 oz Weight Comment: 2670 gms Length-Baby A: 18.5 in Head Circumference-Baby A: 12.8 in Score-1 Minute Interval(Baby A) Heart Rate-1 minute: 100 BPM or Greater Respiratory Effort- 1 minute: Spontaneous/Strong Cry Muscle Tone-1 minute: Active Movement Reflex Response-1 minute: Prompt Response Color-1 minute: Bluish Hands or Feet Total Score-1 minute: 9 Score-5 Minute Interval(Baby A) Heart Rate- 5 minute: 100 BPM or Greater Respiratory Effort-5 minute: Spontaneous/Strong Cry Muscle Tone-5 minute: Active Movement Reflex Response-5 minute: Prompt Response Color-5 minute: Bluish Hands or Feet Total Score- 5 minute: 9
[2025-03-09] MEDS: Dibucaine 1% 28 GM TUBE TP (12:21)
[2025-03-09] MEDS: Hamamelis Leaf/Glycerin 100 EACH BOX PR (12:21)
--- NOTE | 2025-03-09 14:50 | W.ANESPOSTOP ---
Postoperative Evaluation Date, Time and Location Date Performed: 03/09/25 Time Performed: 14:50 Patient Location: Obstetrics Vital Signs Most Recent Imported Vital Signs: Most Recent Vital Signs Temp Pulse Resp BP Pulse Ox 36.4 C L 62 16 116/68 100 03/09/25 14:30 03/09/25 14:30 03/09/25 14:30 03/09/25 14:30 03/09/25 11:50 Assessment Mental Status: Awake (Alert & Oriented to Patient Baseline) Airway and Respiratory Function: Patent airway with normal (patient baseline) respiratory exam Cardiovascular Function: Hemodynamically Stable Hydration Status: Adequately Hydrated Nausea & Vomiting: No Nausea or Vomiting Pain: Pt. Denies Any Pain Peripheral Nerve Block: Patient did not receive a nerve block Postoperative Comments:: Epidural cath removed by nursing staffing coordinator. Tip intact. Pt. happy with pain coverage from Epidural. Rahul Navarro CRNA
[2025-03-10 01:40] VITALS: BP 104/58; PULSE 63; RESP 16; TEMP 36.7; O2SAT 98
--- NOTE | 2025-03-10 05:49 | NUR.NOTE ---
Nursing Note:Pt is out of bed independently, steadily. Assumes care of .
[2025-03-10 09:13] VITALS: BP 113/72; PULSE 67; RESP 16; TEMP 36.7; O2SAT 98
--- NOTE | 2025-03-10 11:09 | W.PM.OBPNV1 ---
Date of service: 03/10/25 Time of Service: 11:09 Assessment and Plan Assessment and plan (1) care following vaginal delivery: Status: Acute Assessment and plan: Caring for baby independently. Pain is managed well with oral analgesics. Voiding without difficulty. with support of alon HUITRON and staff. A - stable mother and baby , Post day 1, P - Discharge to home tomorrow . Routine post instructions. Follow up at [facility]. Subjective Subjective Interval history: at 36 weeks. She is working with alon HUITRON on supportr Patient comments: No complaints Patient's Mood: good baby status: Doing well feeding status: Exclusively breast feeding Exam Physical Exam Vital signs: Temp Pulse Resp BP Pulse Ox 98.1 F 67 16 113/72 98 03/10/25 09:13 03/10/25 09:13 03/10/25 09:13 03/10/25 09:13 03/10/25 09:13 Vital Signs Reviewed: Yes Constitutional Constitutional: no acute distress HEENT Exam HEENT Exam: Normal Respiratory Exam Respiratory Exam: Normal Cardiovascular Exam Cardiovascular Exam: Normal Fundal Exam Fundus: Below Umbilicus and Firm Extremities Exam Extremity Exam: Normal Skin Exam Skin Exam: Normal Psychiatric Exam Psychiatric Exam: Normal Results Hemoglobin/Hematocrit: Hgb 10.5 g/dL (11.2-15.7) L 03/09/25 01:04 Hct 30.9 % (36.0-46.0) L 03/09/25 01:04 Abnormal Lab Findings: Abnormal Labs 03/09/25 01:04 WBC 13.83 H RBC 3.17 L Hgb 10.5 L Hct 30.9 L MCV 98 H MCH 33.1 H
[2025-03-10 20:30] VITALS: BP 118/74; PULSE 72; RESP 17; TEMP 36.7; O2SAT 98
[2025-03-11 08:20] VITALS: BP 132/74; PULSE 74; RESP 16; TEMP 37
--- NOTE | 2025-03-11 15:35 | W.PM.OBDISCH ---
Date of service: 03/11/25 Time of Service: 15:35 DS: Diagnosis Discharge Diagnosis (1) care following vaginal delivery: Status: Acute Asessment and Plan: Caring for baby independently. Pain is managed well with oral analgesics. Voiding without difficulty. well. A - stable mother and baby , Post day 2, P - Discharge to home today. Routine post instructions. Follow up at [facility]. Discharge Plan Disposition Patient Disposition: Home Condition: Good Discharge Details Reason For Visit: NST Admit Date/Time: 03/09/25 00:49 Admit Provider: Lexy Man Attending Provider: Lexy Man Primary Care Provider: Unknown,Unknown Home Meds and New Rx's Prescriptions: No Action multivitamin Tablet 1 tab PO DAILY ondansetron 4 mg tablet,disintegrating 4 mg PO Q6H PRN (Reason: nausea and vomiting) 30 Days Qty: 60 4RF Discharge Instructions Stand Alone Forms: BC Instructions, BC Post Vaginal Deliver Activity:: Activity as Tolerated Equipment/Supplies:: Blood Glucose Monitor Diet:: As Tolerated Discharge Orders Discharge Orders: Discharge Order (Routine); Ordered 03/11/25 Ordered By: Radha Back OB:DS Summary Summary Vaginal Delivery Method: Spontaneaous Episiotomy Description: None Laceration Description: None Laceration Extension: N/A Contraception Discussed Contraception Discussed: Yes Contraceptive Plan: Vasectomy, [place] Gender-Baby A: Male weight: 5 lb 14.181 oz Status at Discharge Functional status at discharge: independent ambulation Overall status at discharge: patient is back to baseline Mental Status: mental status grossly normal Speech and Movement: speech and movement normal Mood: congruent mood Affect: normal affect Exam Physical Exam Vital signs: Temp Pulse Resp BP Pulse Ox 98.6 F 74 16 132/74 98 03/11/25 08:20 03/11/25 08:20 03/11/25 08:20 03/11/25 08:20 03/10/25 20:30 Vital Signs Reviewed: Yes Constitutional Constitutional: no acute distress HEENT Exam HEENT Exam: Normal Respiratory Exam Respiratory Exam: Normal Cardiovascular Exam Cardiovascular Exam: Normal Fundal Exam Fundus: Below Umbilicus and Firm Rectal Exam Rectal Exam: Normal Extremities Exam Extremity Exam: Normal Skin Exam Skin Exam: Normal Psychiatric Exam Psychiatric Exam: Normal PFSH All Active Problems (Updated 03/10/25 @ 11:12 by Radha Back CNM) care following vaginal delivery (Acute) Displaced fracture of proximal phalanx of left lesser toe(s), initial encounter for closed fracture (Acute) (Acute) Depression, (Acute) Lumbosacral lordosis (Acute) Marijuana use (Acute) Cigarette smoker (Acute 10/06/17) Anxiety (Acute 02/11/18) Medical History (Updated 03/10/25 @ 11:12 by Radha Back CNM) Fentanyl adverse reaction Edema Pain in left foot Pap smear of cervix with ASCUS, cannot exclude HGSIL Pap smear. Colpo 05/28/2024-ECC. No biopsies. Benign Pap 05/2025 Care and examination of lactating mother Chronic back pain History of depression Depression Surgical History Tonsillectomy and adenoidectomy Family History Other Breast cancer Diabetes GERD (gastroesophageal reflux disease) Hypercholesterolemia Hypertension Ovarian cancer Type 2 diabetes mellitus Uterine cancer Social History Smoking/Tobacco Use Status: Current every day Tobacco Type: cigarettes Tobacco: How many years used: 13 Quit status: has quit before Smoking risk assessment performed?: Yes Alcohol Intake: current Alcohol Intake frequency: 3 or more drinks per day Drug use: Daily Substance use type: marijuana Details: have not had alcohol in 7 days Household members: other Details: BF-Will. together since 12/2022 Housing: apartment Do you feel safe at home: Yes Do you feel safe in your relationship?: Yes Female Reproductive History Menstrual Age of Menarche: 13 Duration of menses: 3-5 days History History 7 Para 3 Hx # Term Pregnancies 3 Multiple births 0 Hx # Pregnancies 0 Ectopic pregnancies 0 AB induced 3 Hx Number of Living Children 3 AB spontaneous 0 Past Pregnancies Del. Date GA/Weeks # Preg Succ Route Wgt Sex Labor Lgth Anesthesia Location Prov [facility] 06/11/15 40 Yes vaginal 7 lb 6 oz Male [facility] 10/24/17 40 Yes vaginal 6 lb 11 oz Female [facility] Dr[facility] Lala 03/23/24 39 No Yes vaginal 6 lb 7 oz Male 9hrs 41min [facility] Delivery Date: 06/11/15 Last Updated by: Twyla Cohen Vitojay Delivery Date: 10/24/17 Last Updated by: Radha Back CNM [facility] rapid delivery. Delivery Date: 03/23/24 Last Updated by: JERARDO Benitez. Intrathecal provided as fentanyl-free epidural cassette was not available. DS: Data Vitals/I&O Vitals and I&O: Vital Signs Temperature 98.6 F 03/11/25 08:20 Temperature Source Oral 03/11/25 08:20 Pulse 74 03/11/25 08:20 Pulse 69 03/09/25 08:19 Pulse Rhythm Regular 03/11/25 08:20 Respiratory Rate 16 03/11/25 08:20 Respiratory Depth Normal 03/11/25 08:20 Blood Pressure 132/74 03/11/25 08:20 Blood Pressure 107/57 03/09/25 08:19 Blood Pressure Mean 93 03/11/25 08:20 Pulse Oximetry 98 03/10/25 20:30 Oxygen Delivery Method Room Air 03/09/25 02:15 Oxygen Flow Rate 0 03/09/25 02:15 Pain Level 0 03/11/25 08:20 Intake & Output 03/10/25 03/11/25 03/11/25 23:59 11:59 23:59 Other: Urine Color Yellow Yellow
== END 2025-03-11 17:30 | disposition home or self-care (01) | DRG 806 ==
LOC: BCD 01:06 → OBS 01:06
PROVIDERS: Admitting Provider Advanced Practice Midwife; Visit Provider Advanced Practice Midwife
DX: O99.02 Anemia complicating childbirth (principal); O99.324 Drug use complicating childbirth; Z37.0 Single live birth; Z3A.36 36 weeks gestation of pregnancy; F12.90 Cannabis use, unspecified, uncomplicated; F17.210 Nicotine dependence, cigarettes, uncomplicated; O99.334 Smoking (tobacco) complicating childbirth; O77.0 Labor and delivery complicated by meconium in amniotic fluid; O69.81X0 Labor and delivery complicated by cord around neck, without compression, not applicable or unspecified; O99.824 Streptococcus B carrier state complicating childbirth; Z67.91 Unspecified blood type, Rh negative; O26.893 Other specified pregnancy related conditions, third trimester; O99.344 Other mental disorders complicating childbirth; F41.8 Other specified anxiety disorders; O69.89X0 Labor and delivery complicated by other cord complications, not applicable or unspecified
CPT/HCPCS: 85027; 86850; 86900; 86901; 59025; J0665; J2405; J2540; J2795

== ENCOUNTER 2025-03-23 13:35 | Outpatient (CLI) | payer MEDICAID, SELFPAY ==
--- NOTE | 2025-03-23 | DI.RAD_ITS ---
Exam(s) XR FOREARM LT EXAM: XR FOREARM LT CLINICAL HISTORY: r/o foreign body at healed IV site. TECHNIQUE: 2D digital imaging was performed. COMPARISON: No exams were available for comparison FINDINGS: Two views No evidence of fractures of the forearm bones. No elbow joint effusion. Radial head and neck appear unremarkable. With respect of the soft tissues, there is no radiopaque foreign body in the area clinical concern at the mid forearm level. There is also no gas in soft tissues. IMPRESSION: No significant radiograph findings in the forearm. DATA REPOSITORY: RADIATION DOSE DELIVERED:
--- NOTE | 2025-03-23 13:30 | DI.US_ITS ---
Exam(s) US SOFT TISSUE EXTREMITY US UPPER EXTREMITY VENOUS LT EXAM: US UPPER EXTREMITY VENOUS LT and U/S self tissue extremity CLINICAL HISTORY: Lump in left forearm where previous IV site locate. TECHNIQUE: Ultrasound examination of the left upper extremity venous system(s) is performed using grayscale, color-flow, and spectral Doppler analysis. COMPARISON: US US SOFT TISSUE EXTREMITY from 03/23/2025 FINDINGS: Left Deep Veins:The visualized internal jugular and subclavian veins are patent. The axillary and brachial veins are patent and display normal color flow, augmentation and compressibility. Superficial Veins:The visualized cephalic and basilic veins are patent and display normal color flow, augmentation and compressibility. Soft tissues: There is a 3 cm long subcutaneous area of decreased echogenicity in the mid anterior left forearm corresponding to the palpable abnormality. The area does not communicate with any of the surrounding superficial veins. There is no internal blood flow or increased surrounding blood flow. Sonographically, no foreign body is seen. IMPRESSION: 1. No evidence of a left upper extremity deep venous thrombosis. 2. 3 cm long subcutaneous area of decreased echogenicity corresponding to the palpable abnormality. This may represent a resolving hematoma. Abscess is considered less likely. There does not appear to be a communication with the adjacent vessel and superficial thrombus is considered less likely. No definite foreign body is seen. However, and x-ray of the forearm may be considered for further evaluation for foreign body. 3. Follow-up in 10-14 days is recommended. 4. Findings were discussed with Joi Man CNM at 3:15 p.m. on 03/23/2025. DATA REPOSITORY:
--- NOTE | 2025-03-23 13:48 | NUR.NOTE ---
Pt seen at [facility] for 2 week visit. Pt reports lump felt in Left forearm where IV site was during inpatient stay. CNM able to palpate this as well and requested pt have US in DI to determine if there could be an IV cannula still in place. DI requested both soft tissue extremity US and DVT study, CNM aware. Orders in place and pt walked to DI. Nursing Note:
== END 2025-03-23 15:54 ==
LOC: BCD 13:36
PROVIDERS: Visit Provider Advanced Practice Midwife
DX: T81.508A Unspecified complication of foreign body accidentally left in body following other procedure, initial encounter (principal); R22.32 Localized swelling, mass and lump, left upper limb
CPT/HCPCS: 76881; 73090; 93971

== ENCOUNTER 2025-06-20 11:55 | Outpatient (REF) | payer MEDICAID, SELFPAY ==
--- NOTE | 2025-06-20 11:30 | PAPFT_PTH ---
PATIENT: Christine Booker LOC: [facility] U#:[id number] AGE/SX: 34/F ROOM: RE06/20/[address]: Radha Back : 1990 BED: DIS: 06/20/2025 SPEC #: [id number] RECD: 06/20/25 12:58 STATUS: KRISTOPHER REQ #: [id number] ELAINA: 06/20/25 11:[address]: Radha Back DEPT: [facility] Cytology RECD BY: Rina Thomas ENTERED: 06/20/25 12:59 SP TYPE: PAPFT OTHR DR: Unknown,Unknown Tissues: 1 - CX/ENDOCX FOR PAP SMEARS Procedures: PAP THIN PREP/[facility] Screening HPV DNA PROBE Comments: [id number] (HPV 16 & 18/45)
== END 2025-06-20 11:56 | disposition home or self-care (01) ==
LOC: LBN 11:55
PROVIDERS: Visit Provider Advanced Practice Midwife
DX: Z12.4 Encounter for screening for malignant neoplasm of cervix (principal)
CPT/HCPCS: 88142; 87624